=== PATIENT | male | born 1965 | race Caucasian/White ===

== ENCOUNTER → 2016-07-19 | Outpatient (CLI) | payer MEDICARE, MEDICAID | LOC: OD 12:22 | PROVIDERS: ATTEND Physician Assistant | DX: M54.41 Lumbago with sciatica, right side (principal) | CPT/HCPCS: 72110 ==

== ENCOUNTER → 2016-08-05 | Outpatient (CLI) | payer MEDICARE, MEDICAID | LOC: RAD 11:17 | PROVIDERS: ATTEND Physician Assistant | DX: M54.41 Lumbago with sciatica, right side (principal) | CPT/HCPCS: 72148 ==

== ENCOUNTER 2016-08-25 17:26 | Emergency (ER) | payer MEDICARE, MEDICAID ==
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
[2016-08-25] MEDS ORDERED: HYDROMORPHONE HCL INJ/PF 2 MG/ML AMPULE IM ONE (18:24)
[2016-08-25] MEDS ORDERED: ONDANSETRON 4 MG TAB.RAPDIS PO ONE (18:25)
[2016-08-25] MEDS ORDERED: PREDNISONE 20 MG TABLET PO ONE (18:46)
[2016-08-25 19:04] VITALS: BP 130/89
== END 2016-08-25 19:00 | disposition home or self-care (01) ==
LOC: ER 17:26
DX: M54.5 Low back pain (principal); G89.29 Other chronic pain; M54.10 Radiculopathy, site unspecified; M79.604 Pain in right leg; M79.671 Pain in right foot; F17.200 Nicotine dependence, unspecified, uncomplicated
CPT/HCPCS: 99283; 96372; A9270 ×2; J1170; J7512; S0119

== ENCOUNTER 2016-09-02 00:58 | Emergency (ER) | payer MEDICARE, MEDICAID | END 2016-09-02 05:30 | disposition left against medical advice (07) | LOC: ER 00:58 | DX: Z53.21 Procedure and treatment not carried out due to patient leaving prior to being seen by health care provider (principal) ==

== ENCOUNTER 2016-09-03 12:22 | Emergency (ER) | payer MEDICARE, MEDICAID ==
[2016-09-03] MEDS ORDERED: NORMAL SALINE 1000 ML 1,000 ML IV PRN (13:09)
[2016-09-03] MEDS ORDERED: ONDANSETRON HCL INJ/PF 4 MG/2 ML SDV IV ONE (13:10)
[2016-09-03] MEDS ORDERED: DEXAMETHASONE SOD PHOS INJ 10 MG/1 ML VIAL IV ONE (13:10)
[2016-09-03] MEDS ORDERED: HYDROMORPHONE HCL INJ/PF 2 MG/ML AMPULE IV ONE ×2 (13:10→16:06)
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
[2016-09-03 14:29] LABS: ABSOLUTE EOSINOPHILS # (AUTO) 0.1 10^3/uL (0.0-0.6); ABSOLUTE LYMPHOCYTES (AUTO) 0.7 10^3/uL (0.5-4.7); ABSOLUTE MONOCYTES (AUTO) 0.7 10^3/uL (0.1-1.4); ABSOLUTE NEUT (AUTO) 12.3 10^3/uL (1.7-8.2); BASOPHILS % (AUTO) 0.1 % (0-2); HEMATOCRIT 40.8 % (37.9-51.0); HEMOGLOBIN 13.7 g/dL (13.5-17.0); HGB HCT DIFFERENCE 0.3; LYMPHOCYTES % (AUTO) 5.2 % (13-45); MEAN CORPUSCULAR HEMOGLOBIN 29.4 pg (27.0-33.4); MEAN CORPUSCULAR HGB CONC 33.7 g/dL (32.0-36.0); MEAN CORPUSCULAR VOLUME 87 fl (80-97); RED BLOOD COUNT 4.68 10^6/uL (4.35-5.55); RED CELL DISTRIBUTION WIDTH 14.5 % (11.5-14.0); SEGMENTED NEUTROPHILS % (AUTO) 88.7 % (42-78); WHITE BLOOD COUNT 13.9 10^3/uL (4.0-10.5)
[2016-09-03 14:30] LABS: PROTHROMBIN TIME 12.5 SEC (11.4-15.4)
[2016-09-03 14:43] LABS: ALANINE AMINOTRANSFERASE 53 U/L (21-72); ALBUMIN 3.8 g/dL (3.5-5.0); ALKALINE PHOSPHATASE 58 U/L (38-126); ANION GAP 10 (5-19); ASPARTATE AMINO TRANSFERASE 60 U/L (17-59); BILIRUBIN,DIRECT 0.1 mg/dL (0.0-0.4); BILIRUBIN,TOTAL 0.5 mg/dL (0.2-1.3); BLOOD UREA NITROGEN 9 mg/dL (7-20); CALCIUM 8.8 mg/dL (8.4-10.2); CARBON DIOXIDE 22 mmol/L (22-30); CHLORIDE 108 mmol/L (98-107); CREATININE RESULT 0.89 mg/dL (0.52-1.25); GLUCOSE 77 mg/dL (75-110); POTASSIUM 3.9 mmol/L (3.6-5.0); SODIUM 140.3 mmol/L (137-145)
[2016-09-03 16:09] VITALS: BP 136/94
== END 2016-09-03 16:40 | disposition home or self-care (01) ==
LOC: ER 12:22
DX: M51.17 Intervertebral disc disorders with radiculopathy, lumbosacral region (principal); E11.9 Type 2 diabetes mellitus without complications; F17.210 Nicotine dependence, cigarettes, uncomplicated; R00.0 Tachycardia, unspecified; Z88.6 Allergy status to analgesic agent; Z88.0 Allergy status to penicillin; Z86.73 Personal history of transient ischemic attack (TIA), and cerebral infarction without residual deficits
CPT/HCPCS: 96376; 99283; 96374; 96375; 36415; 85025; 85610; 80053; 72100; J1170; J2405; J1100

== ENCOUNTER 2016-09-18 12:32 | Emergency (ER) | payer MEDICARE, MEDICAID ==
[2016-09-18] MEDS ORDERED: ONDANSETRON HCL 8 MG TABLET ONE (15:38)
[2016-09-18] MEDS ORDERED: OXYCODONE-ACETAMINOPHEN 5-325 MG TABLET ONE (15:38)
== END 2016-09-18 15:44 | disposition home or self-care (01) ==
LOC: ER 12:32
DX: G89.21 Chronic pain due to trauma (principal); M54.5 Low back pain; R11.0 Nausea
CPT/HCPCS: 99283

== ENCOUNTER 2016-09-27 11:54 | Emergency (ER) | payer MEDICARE, MEDICAID ==
[2016-09-27] MEDS ORDERED: ONDANSETRON 4 MG TAB.RAPDIS PO ONE (12:34)
[2016-09-27] MEDS ORDERED: KETOROLAC TROMETHAMINE 60 MG/2 ML SDV IM ONE (12:34)
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
[2016-09-27 13:13] VITALS: BP 143/88
== END 2016-09-27 13:13 | disposition home or self-care (01) ==
LOC: ER 11:54
DX: M54.9 Dorsalgia, unspecified (principal); G89.29 Other chronic pain; F17.210 Nicotine dependence, cigarettes, uncomplicated
CPT/HCPCS: 99283; 96372; J1885; A9270; S0119

== ENCOUNTER 2016-10-17 17:14 | Emergency (ER) | payer MEDICARE, MEDICAID ==
[2016-10-17 18:01] VITALS: BP 137/88
[2016-10-17] MEDS ORDERED: LIDOCAINE 5% (700 MG) TRANSDERMAL ADH..PATCH TP ONE (18:45)
[2016-10-17] MEDS ORDERED: DEXAMETHASONE SOD PHOS INJ 10 MG/1 ML VIAL IV ONE (18:45)
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
--- NOTE | 2016-10-17 22:29 | EKG REPORT ---
SEVERITY:- NORMAL ECG - SINUS RHYTHM : Confirmed by: Jamaica Portillo 17-Oct-2016 22:28:42
== END 2016-10-17 18:58 | disposition home or self-care (01) ==
LOC: ER 17:14
DX: G89.29 Other chronic pain (principal); M54.41 Lumbago with sciatica, right side; R55 Syncope and collapse; E11.9 Type 2 diabetes mellitus without complications; I25.2 Old myocardial infarction; I10 Essential (primary) hypertension; F17.200 Nicotine dependence, unspecified, uncomplicated; Z88.6 Allergy status to analgesic agent; Z88.0 Allergy status to penicillin
CPT/HCPCS: 93005; 93010; 99283

== ENCOUNTER 2016-12-13 12:43 | Observation (INO) | payer MEDICARE, MEDICAID ==
[2016-12-13 13:49] LABS: HEMATOCRIT 40.9 % (37.9-51.0); HEMOGLOBIN 14.1 g/dL (13.5-17.0); HGB HCT DIFFERENCE 1.4; MEAN CORPUSCULAR HEMOGLOBIN 30.3 pg (27.0-33.4); MEAN CORPUSCULAR HGB CONC 34.5 g/dL (32.0-36.0); MEAN CORPUSCULAR VOLUME 88 fl (80-97); RED BLOOD COUNT 4.66 10^6/uL (4.35-5.55); RED CELL DISTRIBUTION WIDTH 12.9 % (11.5-14.0); WHITE BLOOD COUNT 6.9 10^3/uL (4.0-10.5)
[2016-12-13 14:05] LABS: ALANINE AMINOTRANSFERASE 26 U/L (21-72); ALBUMIN 3.8 g/dL (3.5-5.0); ALKALINE PHOSPHATASE 61 U/L (38-126); ANION GAP 8 (5-19); ASPARTATE AMINO TRANSFERASE 18 U/L (17-59); BILIRUBIN,DIRECT 0.1 mg/dL (0.0-0.4); BILIRUBIN,TOTAL 0.7 mg/dL (0.2-1.3); BLOOD UREA NITROGEN 9 mg/dL (7-20); CALCIUM 8.9 mg/dL (8.4-10.2); CARBON DIOXIDE 24 mmol/L (22-30); CHLORIDE 109 mmol/L (98-107); CREATININE RESULT 0.96 mg/dL (0.52-1.25); GLUCOSE 94 mg/dL (75-110); POTASSIUM 3.7 mmol/L (3.6-5.0); TOTAL PROTEIN 6.4 g/dL (6.3-8.2)
[2016-12-13] MEDS ORDERED: PANTOPRAZOLE SODIUM 40 MG VIAL IV SCH (18:00)
[2016-12-13] MEDS: NORMAL SALINE 1000 ML 1,000 ML IV PRN (18:58)
[2016-12-13] MEDS: HYDROMORPHONE HCL INJ/PF 2 MG/ML AMPULE IV PRN ×2 (19:47→23:57)
[2016-12-13] MEDS ORDERED: LEVETIRACETAM 500 MG TABLET PO ONE (20:30)
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
--- NOTE | 2016-12-13 22:47 | EKG REPORT ---
SEVERITY:- NORMAL ECG - SINUS RHYTHM : Confirmed by: Jamaica Portillo 13-Dec-2016 22:46:36
[2016-12-14] MEDS: NORMAL SALINE 1000 ML 1,000 ML IV PRN (02:57)
[2016-12-14 03:47] LABS: APPEARANCE,URINE CLEAR; BILIRUBIN,URINE NEGATIVE (NEGATIVE); GLUCOSE, URINE NEGATIVE (NEGATIVE); KETONES,URINE NEGATIVE (NEGATIVE); LEUKOCYTE ESTERASE,URINE NEGATIVE (NEGATIVE); NITRITE,URINE NEGATIVE (NEGATIVE); PROTEIN,URINE NEGATIVE (NEGATIVE); URINE SPECIFIC GRAVITY 1.003; UROBILINOGEN,URINE NEGATIVE mg/dL (<2.0)
[2016-12-14] MEDS: HYDROMORPHONE HCL INJ/PF 2 MG/ML AMPULE IV PRN ×2 (03:51→08:17)
[2016-12-14 05:27] LABS: HEMATOCRIT 40.2 % (37.9-51.0); HEMOGLOBIN 13.9 g/dL (13.5-17.0); HGB HCT DIFFERENCE 1.5; MEAN CORPUSCULAR HEMOGLOBIN 30.9 pg (27.0-33.4); MEAN CORPUSCULAR HGB CONC 34.7 g/dL (32.0-36.0); MEAN CORPUSCULAR VOLUME 89 fl (80-97); RED BLOOD COUNT 4.51 10^6/uL (4.35-5.55); RED CELL DISTRIBUTION WIDTH 12.5 % (11.5-14.0); WHITE BLOOD COUNT 5.5 10^3/uL (4.0-10.5)
[2016-12-14] MEDS ORDERED: OXYCODONE-ACETAMINOPHEN 5-325 MG TABLET PO PRN (08:37)
[2016-12-14] MEDS ORDERED: HYDROMORPHONE HCL INJ/PF 2 MG/ML AMPULE IV PRN (08:45)
[2016-12-14] MEDS ORDERED: LEVETIRACETAM 500 MG TABLET PO SCH (10:00)
[2016-12-14] MEDS ORDERED: NALOXONE HCL INJ/PF 0.4 MG/1 ML SDV ONE (11:46)
[2016-12-14] MEDS ORDERED: GLUCAGON,HUMAN RECOMB 1 MG INJ ONE (11:47)
[2016-12-14] MEDS ORDERED: FLUMAZENIL INJ 0.5 MG/5 ML VIAL IV ONE (11:47)
[2016-12-14] MEDS ORDERED: EPINEPHRINE INJ 1 MG/10 ML DISP.SYRIN ONE (11:47)
[2016-12-14] MEDS: MIDAZOLAM 2 MG/2 ML INJ ONE ×4 (12:06→12:18)
[2016-12-14] MEDS: FENTANYL CITRATE INJ/PF 100 MCG/2 ML AMPUL ONE ×2 (12:08→12:14)
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
--- NOTE | 2016-12-14 12:33 | Operative Report ---
Operative Report DATE OF SURGERY: 12/14/16 Operative Report: Pre-op diagnosis: Melena Post-op diagnosis: 1. Antral gastritis and erosions 2. Duodenal ulcer and duodenitis Surgery: Esophagogastroduodenoscopy with biopsy Medications: Versed 3mg Fentanyl 100 mcg IV push Tissue removed: Antral biopsy for pathology Procedure: After informed consent obtained from patient, the throat was sprayed with Hurricane and conscious sedation was achieved. The upper endoscope was inserted into the esophagus under direct vision and advanced into the stomach. The duodenum was entered and examined to the second part. Endoscope was then slowly pulled out of the patient as the mucosa was examined into details. Patient tolerated procedure well. Findings Esophagus: Normal Z-line at: 45 cm Antrum: Moderate erythema with multiple small erosions Body: Normal Fundus: Normal Duodenum first part: Moderate erythema with a 3 mm ulcer. There was no evidence for recent bleeding Duodenum second part: Normal Plan: Await pathology. Continue PPI daily by mouth OPERATION: .
[2016-12-14 12:51] VITALS: BP 105/54
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
[2016-12-14] MEDS ORDERED: PANTOPRAZOLE SODIUM 40 MG VIAL IV SCH (18:00)
== END 2016-12-14 14:08 | disposition home or self-care (01) ==
LOC: 3S 12:43
PROVIDERS: ADMIT Internal Medicine; ATTEND Internal Medicine
PROC: 0DB68ZX Excision of Stomach, Via Natural or Artificial Opening Endoscopic, Diagnostic (ICD-10-PCS; principal; 2016-12-14 12:00)
DX: K92.2 Gastrointestinal hemorrhage, unspecified (principal); K29.50 Unspecified chronic gastritis without bleeding; K26.9 Duodenal ulcer, unspecified as acute or chronic, without hemorrhage or perforation; Z79.899 Other long term (current) drug therapy; K29.80 Duodenitis without bleeding; Z86.73 Personal history of transient ischemic attack (TIA), and cerebral infarction without residual deficits; I25.2 Old myocardial infarction; R56.9 Unspecified convulsions; S06.899S Other specified intracranial injury with loss of consciousness of unspecified duration, sequela; V49.9XXS Car occupant (driver) (passenger) injured in unspecified traffic accident, sequela; F17.210 Nicotine dependence, cigarettes, uncomplicated
CPT/HCPCS: 43239; 36415 ×2; 85027 ×2; 82272; 80076; 80048; 81001; 88342 ×2; 88305 ×2; 93005; 93010; G0378 ×2; J2250; J3010; A9270 ×3; J1170 ×2; C9113; J7030 ×2; G0379; J0171; J1610; J2310; J3490; S0164

== ENCOUNTER 2017-01-15 17:32 | Emergency (ER) | payer MEDICARE, MEDICAID ==
[2017-01-15] MEDS ORDERED: NORMAL SALINE 1000 ML 1,000 ML IV ONE (18:19)
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
--- NOTE | 2017-01-15 19:17 | RADIOLOGY REPORT (SQ) ---
EXAM DESCRIPTION: CHEST PA/LAT COMPLETED DATE/TIME: 01/15/2017 7:10 pm REASON FOR STUDY: CP COMPARISON: 08/12/2015 EXAM PARAMETERS: NUMBER OF VIEWS: two views TECHNIQUE: Digital Frontal and Lateral radiographic views of the chest acquired. RADIATION DOSE: NA LIMITATIONS: none FINDINGS: LUNGS AND PLEURA: No opacities, masses or pneumothorax. No pleural effusion. MEDIASTINUM AND HILAR STRUCTURES: No masses or contour abnormalities. HEART AND VASCULAR STRUCTURES: Heart normal size. No evidence for failure. BONES: No acute findings. HARDWARE: None in the chest. OTHER: No other significant finding. IMPRESSION: NO SIGNIFICANT RADIOGRAPHIC FINDING IN THE CHEST. TECHNICAL DOCUMENTATION: JOB ID: [id number] [employer]- All Rights Reserved
[2017-01-15 19:32] LABS: ABSOLUTE BASOPHILS # (AUTO) 0.1 10^3/uL (0.0-0.2); ABSOLUTE LYMPHOCYTES (AUTO) 1.9 10^3/uL (0.5-4.7); ABSOLUTE MONOCYTES (AUTO) 0.5 10^3/uL (0.1-1.4); ABSOLUTE NEUT (AUTO) 6.4 10^3/uL (1.7-8.2); BASOPHILS % (AUTO) 0.9 % (0-2); EOSINOPHILS % (AUTO) 0.5 % (0-6); HEMATOCRIT 46.1 % (37.9-51.0); HEMOGLOBIN 16.2 g/dL (13.5-17.0); HGB HCT DIFFERENCE 2.5; LYMPHOCYTES % (AUTO) 21.7 % (13-45); MEAN CORPUSCULAR HEMOGLOBIN 30.5 pg (27.0-33.4); MEAN CORPUSCULAR HGB CONC 35.1 g/dL (32.0-36.0); MEAN CORPUSCULAR VOLUME 87 fl (80-97); MONOCYTES % (AUTO) 5.2 % (3-13); RED BLOOD COUNT 5.31 10^6/uL (4.35-5.55); RED CELL DISTRIBUTION WIDTH 12.5 % (11.5-14.0); SEGMENTED NEUTROPHILS % (AUTO) 71.7 % (42-78)
[2017-01-15 19:52] LABS: ALANINE AMINOTRANSFERASE 23 U/L (21-72); ALKALINE PHOSPHATASE 72 U/L (38-126); ANION GAP 14 (5-19); ASPARTATE AMINO TRANSFERASE 25 U/L (17-59); BILIRUBIN,DIRECT 0.5 mg/dL (0.0-0.4); BILIRUBIN,TOTAL 1.2 mg/dL (0.2-1.3); BLOOD UREA NITROGEN 10 mg/dL (7-20); CALCIUM 9.8 mg/dL (8.4-10.2); CARBON DIOXIDE 23 mmol/L (22-30); CHLORIDE 107 mmol/L (98-107); CREATINE KINASE 310 U/L (55-170); CREATININE RESULT 0.96 mg/dL (0.52-1.25); GLUCOSE 85 mg/dL (75-110); POTASSIUM 3.8 mmol/L (3.6-5.0); SODIUM 143.7 mmol/L (137-145); TOTAL PROTEIN 7.9 g/dL (6.3-8.2)
[2017-01-15 20:04] LABS: CREATINE KINASE MB 1.47 ng/mL (<4.55)
[2017-01-15 20:06] LABS: TROPONIN I < 0.012 ng/mL
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
[2017-01-15 22:16] VITALS: BP 132/94
--- NOTE | 2017-01-15 22:53 | EKG REPORT ---
SEVERITY:- NORMAL ECG - SINUS RHYTHM : Confirmed by: [place] Portillo 15-Jan-2017 22:53:16
== END 2017-01-15 22:15 | disposition home or self-care (01) ==
LOC: ER 17:32
DX: R07.9 Chest pain, unspecified (principal); R42 Dizziness and giddiness; R06.00 Dyspnea, unspecified; F17.200 Nicotine dependence, unspecified, uncomplicated
CPT/HCPCS: 93005; 99285; 96360; 36415; 82553; 82550; 84443; 85025; 80053; 84484; 71020; 93010; J7030

== ENCOUNTER 2017-04-18 09:07 | Emergency (ER) | payer MEDICARE, MEDICAID ==
[2017-04-18] MEDS ORDERED: PREDNISONE 20 MG TABLET PO ONE (09:46)
[2017-04-18] MEDS ORDERED: IPRATROPIUM/ALBUTEROL 0.5-2.5 MG/3 ML AMPUL NEB ONE (09:46)
--- NOTE | 2017-04-18 09:56 | RADIOLOGY REPORT (SQ) ---
EXAM DESCRIPTION: CHEST PA/LAT COMPLETED DATE/TIME: 04/18/2017 9:33 am REASON FOR STUDY: cough COMPARISON: 01/15/2017. EXAM PARAMETERS: NUMBER OF VIEWS: two views TECHNIQUE: Digital Frontal and Lateral radiographic views of the chest acquired. RADIATION DOSE: NA LIMITATIONS: none FINDINGS: LUNGS AND PLEURA: No opacities, masses or pneumothorax. No pleural effusion. MEDIASTINUM AND HILAR STRUCTURES: No masses or contour abnormalities. HEART AND VASCULAR STRUCTURES: Heart normal size. No evidence for failure. BONES: No acute findings. HARDWARE: None in the chest. OTHER: No other significant finding. IMPRESSION: NO SIGNIFICANT RADIOGRAPHIC FINDING IN THE CHEST. TECHNICAL DOCUMENTATION: JOB ID: [id number] [employer]- All Rights Reserved
[2017-04-18] MEDS ORDERED: AZITHROMYCIN 250 MG TABLET PO ONE (10:45)
[2017-04-18] MEDS ORDERED: ALBUTEROL SULFATE HFA (90 MCG/PUFF) 8 GM MDI (1 MDI/ER DISP) IH ONE (10:45)
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
[2017-04-18 11:07] VITALS: BP 120/80
== END 2017-04-18 11:24 | disposition home or self-care (01) ==
LOC: ER 09:07
DX: J40 Bronchitis, not specified as acute or chronic (principal); R05 Cough; R19.7 Diarrhea, unspecified; R11.2 Nausea with vomiting, unspecified; F17.200 Nicotine dependence, unspecified, uncomplicated
CPT/HCPCS: 94640; 99283; 71020; A9270 ×3; J3490; J7512; J7620

== ENCOUNTER 2017-08-25 13:05 | Observation (INO) | payer MEDICARE, MEDICAID ==
[2017-08-25] MEDS ORDERED: ACETAMINOPHEN 325 MG TABLET ONE (14:44)
[2017-08-25] MEDS ORDERED: ACETAMINOPHEN 325 MG TABLET PO PRN ×2 (14:48→21:00)
[2017-08-25] MEDS ORDERED: LANSOPRAZOLE 30 MG TAB.RAP.DR PO ONE (15:00)
[2017-08-25 15:17] LABS: ALANINE AMINOTRANSFERASE 57 U/L (21-72); ALBUMIN 3.5 g/dL (3.5-5.0); ALKALINE PHOSPHATASE 51 U/L (38-126); ANION GAP 9 (5-19); ASPARTATE AMINO TRANSFERASE 33 U/L (17-59); BILIRUBIN,DIRECT 0.1 mg/dL (0.0-0.4); BILIRUBIN,TOTAL 0.1 mg/dL (0.2-1.3); BLOOD UREA NITROGEN 9 mg/dL (7-20); CALCIUM 9.1 mg/dL (8.4-10.2); CARBON DIOXIDE 27 mmol/L (22-30); CHLORIDE 107 mmol/L (98-107); GLUCOSE 110 mg/dL (75-110); POTASSIUM 3.9 mmol/L (3.6-5.0); SODIUM 142.6 mmol/L (137-145); TOTAL PROTEIN 5.8 g/dL (6.3-8.2)
[2017-08-25 15:31] LABS: ABSOLUTE EOSINOPHILS # (AUTO) 0.1 10^3/uL (0.0-0.6); ABSOLUTE MONOCYTES (AUTO) 0.5 10^3/uL (0.1-1.4); ABSOLUTE NEUT (AUTO) 4.8 10^3/uL (1.7-8.2); BASOPHILS % (AUTO) 0.7 % (0-2); HEMATOCRIT 40.2 % (37.9-51.0); HEMOGLOBIN 13.8 g/dL (13.5-17.0); LYMPHOCYTES % (AUTO) 15.7 % (13-45); MEAN CORPUSCULAR HEMOGLOBIN 30.1 pg (27.0-33.4); MEAN CORPUSCULAR HGB CONC 34.3 g/dL (32.0-36.0); MEAN CORPUSCULAR VOLUME 88 fl (80-97); MONOCYTES % (AUTO) 7.7 % (3-13); PLATELET COUNT 266 10^3/uL (150-450); RED BLOOD COUNT 4.58 10^6/uL (4.35-5.55); RED CELL DISTRIBUTION WIDTH 13.1 % (11.5-14.0); SEGMENTED NEUTROPHILS % (AUTO) 73.9 % (42-78); TOTAL CELLS COUNTED % (AUTO) 100 %; WHITE BLOOD COUNT 6.5 10^3/uL (4.0-10.5)
[2017-08-25 20:19] VITALS: BP 134/78
[2017-08-25] MEDS ORDERED: (PENDING PHARMACY ID) (Aripiprazole [Abilify 10 Mg Tablet] 10 MG) PO SCH (20:30)
--- NOTE | 2017-08-25 20:56 | PDOC H&P ---
History of Present Illness Admission Date/PCP: 08/25/17 13:05 BHANU LLANES MD History of Present Illness: BREANNA CHAPPELL JR is a 52 year old male.He came to the office today for evaluation of passage of black stool, he was seen in the office back in May of this year for the same complaint at that time he was referred to GI physician outpatient for evaluation but he did not keep the appointment, he was supposed to have colonoscopy done in January last year ,he did not keep the appointment either he said he was in [facility] at the time ,because of his attitude of poor compliance and the fact that he has a history of bleeding peptic ulcer disease was admitted directly from the office to the hospital for further evaluation of his complaints. The hemogram and the comprehensive metabolic panel all came back negative. Past Medical History Cardiac Medical History: Reports: Hypertension Neurological Medical History: Reports: Seizures - 9months ago takes keppra now GI Medical History: Reports: Peptic Ulcer Disease Musculoskeltal Medical History: Reports: Arthritis Traumatic Medical History: Reports: Traumatic Brain Injury Past Surgical History Past Surgical History: Reports: Orthopedic Surgery Social History Smoking Status: Current Every Day Smoker Frequency of Alcohol Use: None Drugs: None Hx Prescription Drug Abuse: No - Advance Directive Resuscitation Status: Full Code Family History Family History: Arthritis, CAD, DM, Hyperlipidemia, Hypertension, Thyroid Disfunction Parental Family History Reviewed: Yes Children Family History Reviewed: Yes Sibling(s) Family History Reviewed.: Yes Medication/Allergy Home Medications: Aripiprazole [Abilify 10 mg Tablet] 10 mg PO DAILY 08/25/17 Gabapentin [Neurontin 300 mg Capsule] 300 mg PO Q8 08/25/17 Levetiracetam [Keppra 500 mg Tablet] 500 mg PO Q12 08/25/17 Allergies/Adverse Reactions: aspirin Allergy (Verified 04/18/17 09:08) codeine Allergy (Verified 04/18/17 09:08) Penicillins Allergy (Verified 04/18/17 09:08) Review of Systems Constitutional: ABSENT: chills, fever(s), headache(s), weight gain, weight loss Eyes: ABSENT: visual disturbances Ears: ABSENT: hearing changes Cardiovascular: ABSENT: chest pain, dyspnea on exertion, edema, orthropnea, palpitations Respiratory: ABSENT: cough, hemoptysis Gastrointestinal: PRESENT: abdominal pain, melena. ABSENT: constipation, diarrhea, hematemesis, hematochezia, nausea, vomiting Genitourinary: ABSENT: dysuria, hematuria Musculoskeletal: ABSENT: joint swelling Integumentary: ABSENT: rash, wounds Neurological: ABSENT: abnormal gait, abnormal speech, confusion, dizziness, focal weakness, syncope Psychiatric: ABSENT: anxiety, depression, homidical ideation, suicidal ideation Endocrine: ABSENT: cold intolerance, heat intolerance, menstrual abnormalities, polydipsia, polyuria Hematologic/Lymphatic: ABSENT: easy bleeding, easy bruising, lymphadenopathy Physical Exam Vital Signs: Temp Pulse Resp BP Pulse Ox 98.1 F 68 16 134/78 H 96 08/25/17 20:17 08/25/17 20:17 08/25/17 20:17 08/25/17 20:17 08/25/17 20:17 Intake & Output 08/24/17 08/25/17 08/26/17 06:59 06:59 06:59 Weight 87.543 kg General appearance: PRESENT: no acute distress, well-developed, well-nourished Head exam: PRESENT: atraumatic, normocephalic Eye exam: PRESENT: conjunctiva pink, EOMI, PERRLA Ear exam: PRESENT: normal external ear exam Mouth exam: PRESENT: moist, tongue midline Neck exam: PRESENT: full ROM Respiratory exam: PRESENT: clear to auscultation jimmy Cardiovascular exam: PRESENT: RRR, +S1, +S2 Pulses: PRESENT: normal dorsalis pedis pul, +2 pedal pulses bilateral Vascular exam: PRESENT: normal capillary refill GI/Abdominal exam: PRESENT: normal bowel sounds, soft Rectal exam: PRESENT: deferred Neurological exam: PRESENT: alert, awake, oriented to person, oriented to place , oriented to time, oriented to situation, CN II-XII grossly intact Psychiatric exam: PRESENT: appropriate affect, normal mood Skin exam: PRESENT: dry, intact, warm. ABSENT: cyanosis, rash Results Laboratory Results: 08/25/17 14:23 08/25/17 14:23 08/25/17 08/25/17 14:23 14:23 WBC 6.5 RBC 4.58 Hgb 13.8 Hct 40.2 MCV 88 MCH 30.1 MCHC 34.3 RDW 13.1 Plt Count 266 Seg Neutrophils % 73.9 Lymphocytes % 15.7 Monocytes % 7.7 Eosinophils % 2.0 Basophils % 0.7 Absolute Neutrophils 4.8 Absolute Lymphocytes 1.0 Absolute Monocytes 0.5 Absolute Eosinophils 0.1 Absolute Basophils 0.0 Sodium 142.6 Potassium 3.9 Chloride 107 Carbon Dioxide 27 Anion Gap 9 BUN 9 Creatinine 0.87 Est GFR ( Amer) > 60 Est GFR (Non-Af Amer) > 60 Glucose 110 Calcium 9.1 Total Bilirubin 0.1 L AST 33 ALT 57 Alkaline Phosphatase 51 Total Protein 5.8 L Albumin 3.5 Assessment & Plan - Diagnosis (1) Melena Is this a current diagnosis for this admission?: Yes Plan: Patient was admitted to the hospital, the hemogram was normal, he was started on PPI, Prevacid, kept n.p.o. for upper endoscopy in the morning (2) Personal history of peptic ulcer disease Is this a current diagnosis for this admission?: Yes
--- NOTE | 2017-08-25 21:00 | PDOC DISCHARGE SUMMARY ---
General - Admit/Disc Date/PCP Admission Date/Primary Care Provider: 08/25/17 13:05 BHANU LLANES MD Discharge Date: 08/25/17 - Discharge Diagnosis (1) Melena Is this a current diagnosis for this admission?: Yes (2) Personal history of peptic ulcer disease Is this a current diagnosis for this admission?: Yes - Additional Information Resuscitation Status: Full Code Home Medications: Aripiprazole [Abilify 10 mg Tablet] 10 mg PO DAILY 08/25/17 Gabapentin [Neurontin 300 mg Capsule] 300 mg PO Q8 08/25/17 Levetiracetam [Keppra 500 mg Tablet] 500 mg PO Q12 08/25/17 History of Present Illness History of Present Illness: BREANNA CHAPPELL JR is a 52 year old male.He came to the office today for evaluation of passage of black stool, he was seen in the office back in May of this year for the same complaint at that time he was referred to GI physician outpatient for evaluation but he did not keep the appointment, he was supposed to have colonoscopy done in January last year ,he did not keep the appointment either he said he was in long-term at the time ,because of his attitude of poor compliance and the fact that he has a history of bleeding peptic ulcer disease was admitted directly from the office to the hospital for further evaluation of his complaints. The hemogram and the comprehensive metabolic panel all came back negative. Hospital Course Hospital Course: Patient was admitted for the management of passage of melena stool, consultation was obtained from GI for EGD was supposed to have endoscopy in the morning he was given a Prevacid and Tylenol for pain but patient left AMA because he said the Tylenol was not strong enough. He has a history of opioid abuse ,opioid is not indicated at this time there is no active GI bleed, it does not look like is in distress of any painful syndrome.I do not see any reason to give him opioid theray Physical Exam Vital Signs: Temp Pulse Resp BP Pulse Ox 98.1 F 68 16 134/78 H 96 08/25/17 20:17 08/25/17 20:17 08/25/17 20:17 08/25/17 20:17 08/25/17 20:17 Intake & Output 08/24/17 08/25/17 08/26/17 06:59 06:59 06:59 Weight 87.543 kg General appearance: PRESENT: no acute distress, well-developed, well-nourished Head exam: PRESENT: atraumatic, normocephalic Eye exam: PRESENT: conjunctiva pink, EOMI, PERRLA Ear exam: PRESENT: normal external ear exam Mouth exam: PRESENT: moist, tongue midline Neck exam: PRESENT: full ROM Respiratory exam: PRESENT: clear to auscultation jimmy Cardiovascular exam: PRESENT: RRR, +S1, +S2 Vascular exam: PRESENT: normal capillary refill GI/Abdominal exam: PRESENT: normal bowel sounds, soft Rectal exam: PRESENT: deferred Neurological exam: PRESENT: alert, awake, oriented to person, oriented to place , oriented to time, oriented to situation, CN II-XII grossly intact Psychiatric exam: PRESENT: appropriate affect, normal mood Skin exam: PRESENT: dry, intact, warm Results Laboratory Results: 08/25/17 14:23 08/25/17 14:23 08/25/17 08/25/17 14:23 14:23 WBC 6.5 RBC 4.58 Hgb 13.8 Hct 40.2 MCV 88 MCH 30.1 MCHC 34.3 RDW 13.1 Plt Count 266 Seg Neutrophils % 73.9 Lymphocytes % 15.7 Monocytes % 7.7 Eosinophils % 2.0 Basophils % 0.7 Absolute Neutrophils 4.8 Absolute Lymphocytes 1.0 Absolute Monocytes 0.5 Absolute Eosinophils 0.1 Absolute Basophils 0.0 Sodium 142.6 Potassium 3.9 Chloride 107 Carbon Dioxide 27 Anion Gap 9 BUN 9 Creatinine 0.87 Est GFR ( Amer) > 60 Est GFR (Non-Af Amer) > 60 Glucose 110 Calcium 9.1 Total Bilirubin 0.1 L AST 33 ALT 57 Alkaline Phosphatase 51 Total Protein 5.8 L Albumin 3.5 Qualifiers - * [facility] BEING DISCHARGED WITH ANY OF THE FOLLOWING DIAGNOSIS?: No
[2017-08-25] MEDS ORDERED: LEVETIRACETAM 500 MG TABLET PO SCH (22:00)
[2017-08-25] MEDS ORDERED: GABAPENTIN 300 MG CAPSULE PO SCH (22:00)
[2017-08-26] MEDS ORDERED: LANSOPRAZOLE 30 MG TAB.RAP.DR PO SCH (06:00)
[2017-08-26] MEDS ORDERED: ARIPIPRAZOLE 5 MG TABLET PO SCH (10:00)
== END 2017-08-25 20:52 | disposition left against medical advice (07) ==
LOC: 2S 13:05
PROVIDERS: ADMIT Internal Medicine; ATTEND Internal Medicine
DX: K92.1 Melena (principal); Z87.11 Personal history of peptic ulcer disease; Z91.19 Patient's noncompliance with other medical treatment and regimen; Z53.21 Procedure and treatment not carried out due to patient leaving prior to being seen by health care provider; R10.9 Unspecified abdominal pain; F11.11 Opioid abuse, in remission; R56.9 Unspecified convulsions; F17.200 Nicotine dependence, unspecified, uncomplicated; Z87.820 Personal history of traumatic brain injury; Z79.899 Other long term (current) drug therapy
CPT/HCPCS: 36415; 85025; 80076; 80048; G0378; G0379; A9270 ×2

== ENCOUNTER 2019-04-03 13:24 | Emergency (ER) | payer MEDICARE, OTHER ==
[2019-04-03] MEDS ORDERED: NORMAL SALINE 1000 ML 1,000 ML IV ONE (13:49)
[2019-04-03] MEDS ORDERED: MORPHINE SULFATE 10 MG/ML INJ IV ONE ×3 (13:49→18:31)
[2019-04-03] MEDS ORDERED: ONDANSETRON HCL INJ/PF 4 MG/2 ML SDV IV ONE ×2 (13:49→18:31)
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
[2019-04-03 15:02] LABS: APPEARANCE,URINE CLEAR; BILIRUBIN,URINE NEGATIVE (NEGATIVE); COLOR,URINE STRAW; GLUCOSE, URINE NEGATIVE (NEGATIVE); KETONES,URINE 20 mg/dL (NEGATIVE); PROTEIN,URINE NEGATIVE (NEGATIVE); UROBILINOGEN,URINE NEGATIVE mg/dL (<2.0)
[2019-04-03 15:03] LABS: ABSOLUTE LYMPHOCYTES (AUTO) 0.9 10^3/uL (0.5-4.7); ABSOLUTE MONOCYTES (AUTO) 0.4 10^3/uL (0.1-1.4); BASOPHILS % (AUTO) 0.4 % (0-2); EOSINOPHILS % (AUTO) 0.1 % (0-6); HEMATOCRIT 48.4 % (37.9-51.0); HEMOGLOBIN 16.6 g/dL (13.5-17.0); LYMPHOCYTES % (AUTO) 7.3 % (13-45); MEAN CORPUSCULAR HEMOGLOBIN 30.3 pg (27.0-33.4); MEAN CORPUSCULAR HGB CONC 34.2 g/dL (32.0-36.0); MEAN CORPUSCULAR VOLUME 89 fl (80-97); MONOCYTES % (AUTO) 3.1 % (3-13); PLATELET COUNT 268 10^3/uL (150-450); RED BLOOD COUNT 5.47 10^6/uL (4.35-5.55); RED CELL DISTRIBUTION WIDTH 12.9 % (11.5-14.0); SEGMENTED NEUTROPHILS % (AUTO) 89.1 % (42-78); TOTAL CELLS COUNTED % (AUTO) 100 %; WHITE BLOOD COUNT 12.4 10^3/uL (4.0-10.5)
[2019-04-03] MEDS ORDERED: METOCLOPRAMIDE HCL INJ/PF 10 MG/2 ML SDV IV ONE (15:25)
[2019-04-03 15:28] LABS: ALBUMIN 5.3 g/dL (3.5-5.0); ALKALINE PHOSPHATASE 81 U/L (38-126); ANION GAP 17 (5-19); ASPARTATE AMINO TRANSFERASE 70 U/L (17-59); BILIRUBIN,DIRECT 0.4 mg/dL (0.0-0.4); BILIRUBIN,TOTAL 1.6 mg/dL (0.2-1.3); BLOOD UREA NITROGEN 13 mg/dL (7-20); CALCIUM 10.3 mg/dL (8.4-10.2); CARBON DIOXIDE 18 mmol/L (22-30); CHLORIDE 109 mmol/L (98-107); GLUCOSE 71 mg/dL (75-110); POTASSIUM 3.8 mmol/L (3.6-5.0); TOTAL PROTEIN 8.4 g/dL (6.3-8.2)
[2019-04-03] MEDS ORDERED: DEXTROSE 5%-LACTATED RINGERS 1,000 ML IV ONE ×2 (15:46→17:08)
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
--- NOTE | 2019-04-03 20:03 | RADIOLOGY REPORT (SQ) ---
EXAM DESCRIPTION: CT ABD/PELVIS ORAL ONLY COMPLETED DATE/TIME: 04/03/2019 7:50 pm REASON FOR STUDY: Diffuse abdominal pain, leukocytosis, fever COMPARISON: None. TECHNIQUE: CT scan of the abdomen and pelvis performed with oral contrast and no intravenous contras t. Images reviewed with lung, soft tissue, and bone windows. Reconstructed coronal and sagittal MPR i mages reviewed. All images stored on PACS. All CT scanners at this facility use dose modulation, iterative reconstruction, and/or weight based d osing when appropriate to reduce radiation dose to as low as reasonably achievable (ALARA). [facility]: Dose Right [facility]: CareDose [facility]: Dose Right [facility]: Teradose 4D [facility]: [employer] RADIATION DOSE: mGy. LIMITATIONS: None. FINDINGS: LOWER CHEST: No significant findings. No nodules or infiltrates. NON-CONTRASTED LIVER, SPLEEN, ADRENALS: Evaluation limited by lack of IV contrast. No identified sign ificant masses. PANCREAS: No masses. No peripancreatic inflammatory changes. GALLBLADDER: No identified stones by CT criteria. No inflammatory changes to suggest cholecystitis. RIGHT KIDNEY AND URETER: No solid masses. Incidental note is made of a 2.8 cm simple cyst. No signi ficant calcification. No hydronephrosis or hydroureter. LEFT KIDNEY AND URETER: No solid masses. Incidental note is made of a 1.8 cm simple cyst. No signif icant calcification. No hydronephrosis or hydroureter. AORTA AND RETROPERITONEUM: No aneurysm. No retroperitoneal masses or adenopathy. BOWEL AND PERITONEAL CAVITY: No obvious masses or inflammatory changes. No free fluid. APPENDIX: Normal. PELVIS, BLADDER, AND ABDOMINAL WALL: No abnormal pelvic masses. No abdominal wall hernias. Bladder un remarkable. BONES: No significant findings. OTHER: No other significant finding. IMPRESSION: NO SIGNIFICANT OR ACUTE ABDOMINAL PROCESS. TECHNICAL DOCUMENTATION: JOB ID: [id number] Quality ID # [id number]: Final reports with documentation of one or more dose reduction techniques (e.g., Au tomated exposure control, adjustment of the mA and/or kV according to patient size, use of iterative reconstruction technique) 2010 [employer]- All Rights Reserved Reading location - IP/workstation name: [email or web address]
[2019-04-03 20:42] VITALS: BP 133/63
== END 2019-04-03 20:48 | disposition home or self-care (01) ==
LOC: ER 13:24
DX: R11.2 Nausea with vomiting, unspecified (principal); R19.7 Diarrhea, unspecified; R10.9 Unspecified abdominal pain; F17.210 Nicotine dependence, cigarettes, uncomplicated; Z88.6 Allergy status to analgesic agent; Z88.0 Allergy status to penicillin; I25.2 Old myocardial infarction
CPT/HCPCS: 96376; 99284; 96361; 96374; 96375; 36415; 83690; 85025; 80053; 81001; 74176; J2765; J2270; J2405; J7121; J7030

== ENCOUNTER 2019-04-05 04:45 | Observation (INO) | payer MEDICARE, BC ==
[2019-04-05] MEDS ORDERED: ONDANSETRON HCL INJ/PF 4 MG/2 ML SDV IV ONE (05:45)
[2019-04-05 05:56] LABS: ABSOLUTE BASOPHILS # (AUTO) 0.1 10^3/uL (0.0-0.2); ABSOLUTE LYMPHOCYTES (AUTO) 1.3 10^3/uL (0.5-4.7); ABSOLUTE MONOCYTES (AUTO) 0.8 10^3/uL (0.1-1.4); ABSOLUTE NEUT (AUTO) 8.7 10^3/uL (1.7-8.2); BASOPHILS % (AUTO) 1.2 % (0-2); EOSINOPHILS % (AUTO) 0.4 % (0-6); HEMATOCRIT 41.7 % (37.9-51.0); HEMOGLOBIN 14.8 g/dL (13.5-17.0); LYMPHOCYTES % (AUTO) 11.7 % (13-45); MEAN CORPUSCULAR HEMOGLOBIN 30.7 pg (27.0-33.4); MEAN CORPUSCULAR HGB CONC 35.4 g/dL (32.0-36.0); MEAN CORPUSCULAR VOLUME 87 fl (80-97); MONOCYTES % (AUTO) 7.3 % (3-13); PLATELET COUNT 299 10^3/uL (150-450); RED BLOOD COUNT 4.81 10^6/uL (4.35-5.55); RED CELL DISTRIBUTION WIDTH 12.7 % (11.5-14.0); SEGMENTED NEUTROPHILS % (AUTO) 79.4 % (42-78); TOTAL CELLS COUNTED % (AUTO) 100 %; WHITE BLOOD COUNT 10.9 10^3/uL (4.0-10.5)
[2019-04-05] MEDS ORDERED: NORMAL SALINE 1000 ML 1,000 ML IV ONE (06:09)
[2019-04-05 06:13] LABS: ALBUMIN 4.4 g/dL (3.5-5.0); ALKALINE PHOSPHATASE 57 U/L (38-126); ANION GAP 10 (5-19); ASPARTATE AMINO TRANSFERASE 62 U/L (17-59); BILIRUBIN,DIRECT 0.2 mg/dL (0.0-0.4); BILIRUBIN,TOTAL 1.5 mg/dL (0.2-1.3); BLOOD UREA NITROGEN 13 mg/dL (7-20); CARBON DIOXIDE 25 mmol/L (22-30); CHLORIDE 104 mmol/L (98-107); GLUCOSE 102 mg/dL (75-110); POTASSIUM 3.3 mmol/L (3.6-5.0)
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
[2019-04-05] MEDS: MORPHINE SULFATE 10 MG/ML INJ IV PRN ×3 (06:23→23:35)
[2019-04-05 06:34] LABS: APPEARANCE,URINE CLEAR; BILIRUBIN,URINE NEGATIVE (NEGATIVE); COLOR,URINE YELLOW; GLUCOSE, URINE NEGATIVE (NEGATIVE); KETONES,URINE TRACE mg/dL (NEGATIVE); LEUKOCYTE ESTERASE,URINE NEGATIVE (NEGATIVE); NITRITE,URINE NEGATIVE (NEGATIVE); PROTEIN,URINE NEGATIVE (NEGATIVE)
[2019-04-05 06:41] LABS: URINE AMPHETAMINES SCREEN NEGATIVE; URINE BARBITURATES SCREEN NEGATIVE; URINE BENZODIAZEPINES SCREEN UNCONFIRMED POSITIVE; URINE COCAINE SCREEN NEGATIVE; URINE MARIJUANA (THC) SCREEN UNCONFIRMED POSITIVE; URINE METHADONE SCREEN NEGATIVE; URINE PHENCYCLIDINE SCREEN NEGATIVE
[2019-04-05] MEDS ORDERED: MORPHINE SULFATE 10 MG/ML INJ IV PRN ×2 (07:19→16:24)
[2019-04-05] MEDS ORDERED: PROCHLORPERAZINE EDISYLATE INJ 10 MG/2 ML VIAL IV ONE (07:20)
[2019-04-05] MEDS ORDERED: POTASSI CL 20 MEQ/50 ML RIDER 20 MEQ/50 ML RTUPB IV ONE ×2 (07:21→16:09)
--- NOTE | 2019-04-05 09:27 | RADIOLOGY REPORT (SQ) ---
EXAM DESCRIPTION: CT ABD/PELVIS ORAL ONLY COMPLETED DATE/TIME: 04/05/2019 9:07 am REASON FOR STUDY: RLQ pain abd COMPARISON: CT abdomen pelvis 04/03/2019 TECHNIQUE: CT scan of the abdomen and pelvis performed without intravenous contrast. Patient drank oral contrast. Images reviewed with lung, soft tissue, and bone windows. Reconstructed coronal and s agittal MPR images reviewed. All images stored on PACS. All CT scanners at this facility use dose modulation, iterative reconstruction, and/or weight based d osing when appropriate to reduce radiation dose to as low as reasonably achievable (ALARA). [facility]: Dose Right [facility]: CareDose [facility]: Dose Right [facility]: Teradose 4D [facility]: [employer] RADIATION DOSE: CT Rad equipment meets quality standard of care and radiation dose reduction techniq ues were employed. CTDIvol: 8.2 mGy. DLP: 498 mGy-cm.mGy. LIMITATIONS: None. FINDINGS: Patient drank oral contrast. No CT evidence of bowel obstruction. No free intraperitonea l air or fluid. Normal appendix on coronal images 29-35. LOWER CHEST: No significant findings. No nodules or infiltrates. NON-CONTRASTED LIVER, SPLEEN, ADRENALS: Evaluation limited by lack of IV contrast. No identified sign ificant masses. PANCREAS: No masses. No peripancreatic inflammatory changes. GALLBLADDER: No identified stones by CT criteria. No inflammatory changes to suggest cholecystitis. RIGHT KIDNEY AND URETER: No suspicious masses. Assessment limited by lack of IV contrast. 3 cm right midpole renal cortical cyst. No significant calcifications. No hydronephrosis or hydroureter. LEFT KIDNEY AND URETER: No suspicious masses. Assessment limited by lack of IV contrast. No signifi cant calcifications. No hydronephrosis or hydroureter. AORTA AND RETROPERITONEUM: No aneurysm. No retroperitoneal masses or adenopathy. BOWEL AND PERITONEAL CAVITY: No obvious masses or inflammatory changes. No free fluid. APPENDIX: Normal. PELVIS, BLADDER, AND ABDOMINAL WALL:No abnormal masses. No free fluid. Bladder normal. BONES: No significant findings. OTHER: No other significant finding. IMPRESSION: NO SIGNIFICANT OR ACUTE PROCESS IN THE ABDOMEN OR PELVIS. COMMENT: Quality ID # [id number]: Final reports with documentation of one or more dose reduction techniques (e.g., Automated exposure control, adjustment of the mA and/or kV according to patient size, use of iterative reconstruction technique) TECHNICAL DOCUMENTATION: JOB ID: [id number] [address] [employer]- All Rights Reserved Reading location - IP/workstation name: [email or web address]
[2019-04-05] MEDS ORDERED: RINGERS SOLUTION,LACTATED 1,000 ML IV PRN (11:07)
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
[2019-04-05] MEDS ORDERED: CLINDAMYCIN 600 MG/D5W RTU 600 MG/50 ML RTUPB IV SCH (11:30)
[2019-04-05] MEDS ORDERED: ONDANSETRON HCL INJ/PF 4 MG/2 ML SDV IV PRN ×3 (12:12→16:24)
[2019-04-05] MEDS ORDERED: PROMETHAZINE HCL INJ 25 MG/1 ML VIAL IV PRN ×4 (12:13→16:24)
[2019-04-05] MEDS ORDERED: LORAZEPAM INJ 2 MG/1 ML VIAL IV PRN (12:13)
[2019-04-05] MEDS ORDERED: HYDRALAZINE HCL INJ/PF 20 MG/1 ML SDV IV PRN (12:14)
[2019-04-05] MEDS: POTASSI CL 20 MEQ/50 ML RIDER 20 MEQ/50 ML RTUPB IV SCH ×3 (12:38→14:59)
[2019-04-05] MEDS: CLINDAMYCIN 600 MG/D5W RTU 600 MG/50 ML RTUPB IV SCH ×2 (12:39→19:35)
[2019-04-05] MEDS ORDERED: CLINDAMYCIN 600 MG/D5W RTU 50 ML IV SCH (14:00)
[2019-04-05] MEDS ORDERED: MIDAZOLAM 2 MG/2 ML INJ ONE (14:27)
[2019-04-05] MEDS ORDERED: DEXAMETHASONE SOD PHOSPHATE INJ 4 MG/1 ML VIAL ONE (14:27)
[2019-04-05] MEDS ORDERED: ONDANSETRON HCL INJ/PF 4 MG/2 ML SDV ONE (14:27)
[2019-04-05] MEDS ORDERED: FENTANYL CITRATE INJ/PF 100 MCG/2 ML AMPUL ONE ×2 (14:27→17:11)
[2019-04-05] MEDS ORDERED: PROPOFOL INJ 200 MG/20 ML VIAL IV ONE (14:28)
[2019-04-05] MEDS ORDERED: SUGAMMADEX SODIUM 200 MG/2 ML SDV IV ONE (14:45)
[2019-04-05] MEDS ORDERED: BUPIVACAINE HCL 0.25 % INJ/PF (2.5 MG/1 ML) 30 ML VIAL ONE (14:52)
--- NOTE | 2019-04-05 15:09 | EKG REPORT ---
SEVERITY:- NORMAL ECG - SINUS RHYTHM : Confirmed by: Marry Gomez MD 05-Apr-2019 15:07:21
[2019-04-05] MEDS ORDERED: (PENDING PHARMACY ID) (Oxycodone Hcl/Acetaminophen [Percocet 10-325 Mg Tablet] 1 EACH) PO PRN (16:04)
[2019-04-05] MEDS ORDERED: CYCLOBENZAPRINE HCL 10 MG TABLET PO PRN (16:15)
[2019-04-05] MEDS ORDERED: DIPHENHYDRAMINE HCL 50 MG/ML VIAL IV PRN (16:24)
[2019-04-05] MEDS ORDERED: FENTANYL CITRATE INJ/PF 100 MCG/2 ML AMPUL IV PRN ×2 (16:24)
[2019-04-05] MEDS ORDERED: MEPERIDINE HCL/PF INJ 25 MG/1 ML DISP.SYRIN IV PRN (16:24)
--- NOTE | 2019-04-05 16:48 | Operative Report ---
Operative Report DATE OF SURGERY: 04/05/19 PREOPERATIVE DIAGNOSIS: Acute right lower quadrant pain, rule out appendicitis POSTOPERATIVE DIAGNOSIS: Same; possible early appendicitis OPERATION: 1. Laparoscopic appendectomy SURGEON: NURIA PHELAN ANESTHESIA: GA TISSUE REMOVED OR ALTERED: 1 appendix COMPLICATIONS: None ESTIMATED BLOOD LOSS: Scant INTRAOPERATIVE FINDINGS: See below PROCEDURE: The patient was taken to the preop holding area to the main operating room where general anesthesia was induced. Patient voided on-call to the OR. The arms were tucked, the abdominal wall shaved, prepped and draped in sterile fashion. Surgical plan and surgical timeout were conducted. Markings were made on the skin for 3 port laparoscopy. The skin at all 3 sites was anesthetized with 1% plain lidocaine. A small vertical incision was made above the umbilicus, and a Veress needle was inserted into the peritoneal cavity, pneumoperitoneum was established. Veress needle was removed, and a 5 mm port was inserted and a 5 mm flexible scope was inserted. There was no evidence of vascular or visceral injury. Under direct visualization 2 additional ports were placed one 5 mm in the suprapubic position and a 12 mm left lower quadrant position. Again all entry sites were inspected for bleeding and there was none. The patient was placed in Trendelenburg position the appendix appreciated. It appeared to be only minimally enlarged. There was no evidence of perforation, fluid, sepsis. Furthermore there was no evidence of bowel obstruction, abnormal bowel color, or cecal irregularity. There was no evidence of hernia in the right lower quadrant, specifically no evidence of right inguinal hernia. The surface of the rectum appeared unremarkable. The gallbladder appeared slightly dilated but not acutely inflamed. We proceeded with appendectomy. The peritoneal reflection was divided releasing the tip of the appendix into the free peritoneal space. We had the appendix elevated from its base and mesoappendix. Photos were taken. We brought onto the field a 35 mm Endo MIKE stapler, blue load. It was advanced, and clamped onto the mesoappendix and appendix and one bite. Stapler was activated, effectively dividing both the mesoappendix and the base of the appendix safely. The appendix was removed from the patient to the left lower quadrant port site. There was minimal staple line bleeding which was managed with a small piece of Surgicel. We level the patient out, check for any other issues and there were none. We felt the operation was complete. Sponge and needle counts are correct. All ports removed under direct visualization, pneumoperitoneum sacculated, and supraumbilical left lower quadrant fascial defects closed with 0 Vicryl and skin closed with 3-0 Vicryl. Benzoin Steri-Strips applied. Patient tolerated procedure well, extubated, taken recovery in stable condition. The appendix was opened on the back table and found to contain stool. It was sent for permanent analysis.
[2019-04-05] MEDS: FENTANYL CITRATE INJ/PF 100 MCG/2 ML AMPUL IV PRN ×2 (17:09→17:22)
[2019-04-05] MEDS: OXYCODONE-ACETAMINOPHEN 5-325 MG TABLET PO PRN (19:34)
[2019-04-05] MEDS: GABAPENTIN 300 MG CAPSULE PO SCH (19:35)
[2019-04-05] MEDS: LISINOPRIL 10 MG TABLET PO SCH (19:36)
[2019-04-05] MEDS: DOCUSATE SODIUM 100 MG CAPSULE PO SCH (19:36)
[2019-04-05] MEDS: OXYCODONE HCL IR 5 MG TABLET PO PRN (20:11)
[2019-04-05] MEDS ORDERED: INFLUENZA QUAD (6MOS+) 2019-20 VAC 0.5 ML SYR IM ONE (20:17)
[2019-04-06] MEDS: MORPHINE SULFATE 10 MG/ML INJ IV PRN ×3 (01:37→09:10)
[2019-04-06] MEDS: CLINDAMYCIN 600 MG/D5W RTU 600 MG/50 ML RTUPB IV SCH (01:38)
[2019-04-06] MEDS: OXYCODONE HCL IR 5 MG TABLET PO PRN ×2 (02:18→08:02)
[2019-04-06] MEDS: OXYCODONE-ACETAMINOPHEN 5-325 MG TABLET PO PRN ×2 (02:24→08:01)
[2019-04-06] MEDS: GABAPENTIN 300 MG CAPSULE PO SCH (06:05)
--- NOTE | 2019-04-06 08:56 | PDOC PROGRESS REPORT ---
Subjective Progress Note for:: 04/06/19 Subjective:: Feels well. Much better than before the operation. Reason For Visit: ACUTE ABDOMINAL PAIN Physical Exam Vital Signs: Temp Pulse Resp BP Pulse Ox 98.2 F 79 16 129/74 H 94 04/06/19 01:09 04/06/19 01:09 04/06/19 01:09 04/06/19 01:09 04/06/19 01:09 Intake & Output 04/05/19 04/06/19 04/07/19 06:59 06:59 06:59 Intake Total 3831 Output Total 1407 Balance 2424 Weight 91.2 kg General appearance: PRESENT: no acute distress, cooperative Respiratory exam: PRESENT: clear to auscultation jimmy Cardiovascular exam: PRESENT: RRR GI/Abdominal exam: PRESENT: other - Soft, nondistended, wounds clean dry and intact. Minimal tenderness. Extremities exam: PRESENT: other - No swelling and no tenderness. Results Laboratory Results: 04/05/19 05:35 04/05/19 18:21 04/05/19 04/05/19 15:30 18:21 Potassium 3.2 L 3.4 L Impressions: Abdomen/Pelvis CT 04/05/19 06:10 IMPRESSION: NO SIGNIFICANT OR ACUTE PROCESS IN THE ABDOMEN OR PELVIS. Assessment & Plan - Diagnosis (1) Abdominal pain Qualifiers: Abdominal location: right lower quadrant Qualified Code(s): R10.31 - Right lower quadrant pain Is this a current diagnosis for this admission?: Yes Plan: Doing well after laparoscopic appendectomy. Surgeon uncertain whether he had appendicitis. But patient has had good response. Will discharge patient home. - Time Time Spent with patient: Less than 15 minutes
--- NOTE | 2019-04-06 09:00 | PDOC DISCHARGE SUMMARY ---
General - Admit/Disc Date/PCP Admission Date/Primary Care Provider: 04/05/19 12:04 Discharge Date: 04/06/19 - Discharge Diagnosis Final Diagnosis: Right lower quadrant abdominal pain - Assessment Summary: Patient underwent laparoscopic appendectomy. It was uncertain whether he had appendicitis however he had good response with surgery and was feeling much better. Patient was tolerating a diet with minimal tenderness at the time of discharge. He has not been discharged home in good condition. He will follow- up with Dr. Pemberton in 2 weeks. He is encouraged to stay active but avoid strenuous activity. He may shower tomorrow. He may follow a regular diet. - Additional Information Resuscitation Status: Full Code Discharge Diet: As Tolerated Discharge Activity: Activity As Tolerated - Stay active but avoid strenuous activity. Referrals: NURIA PEMBERTON MD [ACTIVE STAFF] - Home Medications: Cyclobenzaprine HCl [Flexeril 5 mg Tablet] 5 mg PO TIDP PRN 04/05/19 Ergocalciferol (Vitamin D2) [Vitamin D2] 50,000 unit PO WE@1000 04/05/19 Gabapentin [Neurontin 300 mg Capsule] 300 mg PO BID 04/05/19 Lisinopril/Hydrochlorothiazide [Lisinopril-Hctz 20-12.5 mg Tab] 1 each PO DAILY 04/05/19 Oxycodone HCl/Acetaminophen [Percocet 10-325 mg Tablet] 1 each PO Q6HP PRN 04/05/19 History of Present Illiness History of Present Illness: BREANNA CHAPPELL JR is a 54 year old male Physical Exam Vital Signs: Temp Pulse Resp BP Pulse Ox 98.2 F 79 16 129/74 H 94 04/06/19 01:09 04/06/19 01:09 04/06/19 01:09 04/06/19 01:09 04/06/19 01:09 Intake & Output 04/05/19 04/06/19 04/07/19 06:59 06:59 06:59 Intake Total 3831 Output Total 1407 Balance 2424 Weight 91.2 kg Results Laboratory Results: WBC 10.9 10^3/uL (4.0-10.5) H 04/05/19 05:35 RBC 4.81 10^6/uL (4.35-5.55) 04/05/19 05:35 Hgb 14.8 g/dL (13.5-17.0) 04/05/19 05:35 Hct 41.7 % (37.9-51.0) 04/05/19 05:35 MCV 87 fl (80-97) 04/05/19 05:35 MCH 30.7 pg (27.0-33.4) 04/05/19 05:35 MCHC 35.4 g/dL (32.0-36.0) 04/05/19 05:35 RDW 12.7 % (11.5-14.0) 04/05/19 05:35 Plt Count 299 10^3/uL (150-450) 04/05/19 05:35 Lymph % (Auto) 11.7 % (13-45) L 04/05/19 05:35 [place] % (Auto) 7.3 % (3-13) 04/05/19 05:35 Eos % (Auto) 0.4 % (0-6) 04/05/19 05:35 Baso % (Auto) 1.2 % (0-2) 04/05/19 05:35 Absolute Neuts (auto) 8.7 10^3/uL (1.7-8.2) H 04/05/19 05:35 Absolute Lymphs (auto) 1.3 10^3/uL (0.5-4.7) 04/05/19 05:35 Absolute Monos (auto) 0.8 10^3/uL (0.1-1.4) 04/05/19 05:35 Absolute Eos (auto) 0.0 10^3/uL (0.0-0.6) 04/05/19 05:35 Absolute Basos (auto) 0.1 10^3/uL (0.0-0.2) 04/05/19 05:35 Seg Neutrophils % 79.4 % (42-78) H 04/05/19 05:35 Sodium 139.2 mmol/L (137-145) 04/05/19 05:35 Potassium 3.4 mmol/L (3.6-5.0) L 04/05/19 18:21 Chloride 104 mmol/L (98-107) 04/05/19 05:35 Carbon Dioxide 25 mmol/L (22-30) 04/05/19 05:35 Anion Gap 10 (5-19) 04/05/19 05:35 BUN 13 mg/dL (7-20) 04/05/19 05:35 Creatinine 1.04 mg/dL (0.52-1.25) 04/05/19 05:35 Est GFR ( Amer) > 60 (>60) 04/05/19 05:35 Est GFR (MDRD) Non-Af > 60 (>60) 04/05/19 05:35 Glucose 102 mg/dL (75-110) 04/05/19 05:35 Lactic Acid 1.3 mmol/L (0.7-2.1) 04/05/19 06:20 Calcium 9.0 mg/dL (8.4-10.2) 04/05/19 05:35 Magnesium 2.1 mg/dL (1.6-2.3) 04/05/19 05:35 Total Bilirubin 1.5 mg/dL (0.2-1.3) H 04/05/19 05:35 Direct Bilirubin 0.2 mg/dL (0.0-0.4) 04/05/19 05:35 Neonat Total Bilirubin Not Reportable 04/05/19 05:35 Neonat Direct Bilirubin Not Reportable 04/05/19 05:35 Neonat Indirect Bili Not Reportable 04/05/19 05:35 AST 62 U/L (17-59) H 04/05/19 05:35 ALT 40 U/L (<50) 04/05/19 05:35 Alkaline Phosphatase 57 U/L (38-126) 04/05/19 05:35 Total Protein 7.0 g/dL (6.3-8.2) 04/05/19 05:35 Albumin 4.4 g/dL (3.5-5.0) 04/05/19 05:35 Lipase 251.4 U/L (23-300) 04/05/19 05:35 Urine Color YELLOW 04/05/19 05:50 Urine Appearance CLEAR 04/05/19 05:50 Urine pH 7.0 (5.0-9.0) 04/05/19 05:50 Ur Specific [place] 1.010 04/05/19 05:50 Urine Protein NEGATIVE mg/dL (NEGATIVE) 04/05/19 05:50 Urine Glucose (UA) NEGATIVE mg/dL (NEGATIVE) 04/05/19 05:50 Urine Ketones TRACE mg/dL (NEGATIVE) H 04/05/19 05:50 Urine Blood LARGE (NEGATIVE) H 04/05/19 05:50 Urine Nitrite NEGATIVE (NEGATIVE) 04/05/19 05:50 Urine Bilirubin NEGATIVE (NEGATIVE) 04/05/19 05:50 Urine Urobilinogen 2.0 mg/dL (<2.0) H 04/05/19 05:50 Ur Leukocyte Esterase NEGATIVE (NEGATIVE) 04/05/19 05:50 Urine WBC (Auto) 1 /HPF 04/05/19 05:50 Urine RBC (Auto) 34 /HPF 04/05/19 05:50 Urine Mucus (Auto) RARE /LPF 04/05/19 05:50 Urine Ascorbic Acid NEGATIVE (NEGATIVE) 04/05/19 05:50 Urine Opiates Screen UNCONFIRMED POSITIVE 04/05/19 05:50 Urine Methadone Screen NEGATIVE 04/05/19 05:50 Ur Barbiturates Screen NEGATIVE 04/05/19 05:50 Ur Phencyclidine Scrn NEGATIVE 04/05/19 05:50 Ur Amphetamines Screen NEGATIVE 04/05/19 05:50 U Benzodiazepines Scrn UNCONFIRMED POSITIVE 04/05/19 05:50 Urine Cocaine Screen NEGATIVE 04/05/19 05:50 U Marijuana (THC) Screen UNCONFIRMED POSITIVE 04/05/19 05:50 Impressions: Abdomen/Pelvis CT 04/05/19 06:10 IMPRESSION: NO SIGNIFICANT OR ACUTE PROCESS IN THE ABDOMEN OR PELVIS.
[2019-04-06] MEDS: DOCUSATE SODIUM 100 MG CAPSULE PO SCH (09:09)
[2019-04-06] MEDS: LISINOPRIL 10 MG TABLET PO SCH (09:09)
[2019-04-06] MEDS ORDERED: OXYCODONE HCL IR 5 MG TABLET PO PRN (12:07)
[2019-04-06] MEDS ORDERED: OXYCODONE-ACETAMINOPHEN 5-325 MG TABLET PO PRN (12:07)
[2019-04-06 12:42] VITALS: BP 130/78
--- NOTE | 2019-04-06 16:53 | PDOC PROGRESS REPORT ---
Subjective Progress Note for:: 04/06/19 Subjective:: Patient states that he feels well. Feels a lot better than he did yesterday. Still having some abdominal pain. Reason For Visit: ACUTE ABDOMINAL PAIN Physical Exam Vital Signs: Temp Pulse Resp BP Pulse Ox 98.2 F 79 16 130/80 H 94 04/06/19 09:47 04/06/19 09:47 04/06/19 09:47 04/06/19 09:47 04/06/19 09:47 Intake & Output 04/05/19 04/06/19 04/07/19 06:59 06:59 06:59 Intake Total 4831 Output Total 1407 Balance 3424 Weight 91.2 kg General appearance: PRESENT: no acute distress, cooperative Neck exam: ABSENT: JVD Respiratory exam: PRESENT: clear to auscultation jimmy Cardiovascular exam: PRESENT: +S1, +S2 GI/Abdominal exam: PRESENT: normal bowel sounds, soft, tenderness Neurological exam: PRESENT: alert, awake Results Laboratory Results: 04/05/19 05:35 04/05/19 18:21 04/05/19 18:21 Potassium 3.4 L Impressions: Abdomen/Pelvis CT 04/05/19 06:10 IMPRESSION: NO SIGNIFICANT OR ACUTE PROCESS IN THE ABDOMEN OR PELVIS. Assessment and Plan - Diagnosis (1) Abdominal pain Qualifiers: Abdominal location: right lower quadrant Qualified Code(s): R10.31 - Right lower quadrant pain Is this a current diagnosis for this admission?: Yes Plan: s/p appendectomy. Will need pain control. Rest of management per surgical team. (2) Hypertension Is this a current diagnosis for this admission?: Yes Plan: continue home meds (3) Hypokalemia Is this a current diagnosis for this admission?: Yes Plan: No follow-up BMP today but patient should continue taking his home potassium medication (4) Opiate dependence, continuous Is this a current diagnosis for this admission?: Yes Plan: Restart home meds (5) Seizure Is this a current diagnosis for this admission?: Yes Plan: As per patient he has been seizure-free and he has been taken off of his anti- seizures. Seizure precaution - Plan Summary Summary: . - Time Time Spent with patient: Less than 15 minutes
[2019-04-07] MEDS ORDERED: ERGOCALCIFEROL (VITAMIN D2) 50000 UNIT (1.25 MG) CAPSULE PO SCH (10:00)
== END 2019-04-06 15:05 | disposition home or self-care (01) ==
LOC: ER 04:45 → EH 12:04 → 5 13:25
PROVIDERS: ADMIT Surgery; ATTEND Surgery
DX: R10.31 Right lower quadrant pain (principal); R11.2 Nausea with vomiting, unspecified; G89.29 Other chronic pain; M54.9 Dorsalgia, unspecified; F11.20 Opioid dependence, uncomplicated; F17.200 Nicotine dependence, unspecified, uncomplicated; I10 Essential (primary) hypertension; E87.6 Hypokalemia; D72.829 Elevated white blood cell count, unspecified; R53.1 Weakness; R19.7 Diarrhea, unspecified; R56.9 Unspecified convulsions; R20.0 Anesthesia of skin; I25.10 Atherosclerotic heart disease of native coronary artery without angina pectoris; Z91.041 Radiographic dye allergy status; Z79.899 Other long term (current) drug therapy; Z23 Encounter for immunization; Z87.820 Personal history of traumatic brain injury; Z87.11 Personal history of peptic ulcer disease; Z87.81 Personal history of (healed) traumatic fracture; Z88.6 Allergy status to analgesic agent; Z88.0 Allergy status to penicillin; Z87.892 Personal history of anaphylaxis
CPT/HCPCS: 99285; 96361; 96375; 96365; 96366; 96368; 36415; 87040; 83605; 83690; 83735; 84132; 85025; 80053; 81001; 80307; 88304 ×2; 74176; 90686; 93005; 93010; 00840; 44970; G0378 ×3; J2250; J1100; A9270 ×9; J3010; J2270 ×2; J0780; J2405; J3480; J7030; J7120; J2704; J3490; 840

== ENCOUNTER 2019-04-07 08:52 | Emergency (ER) | payer MEDICARE, BC ==
[2019-04-07] MEDS ORDERED: MORPHINE SULFATE 10 MG/ML INJ IV ONE (12:22)
[2019-04-07] MEDS ORDERED: METOCLOPRAMIDE HCL INJ/PF 10 MG/2 ML SDV IV ONE ×2 (12:22→16:05)
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
[2019-04-07 12:30] LABS: ABSOLUTE EOSINOPHILS # (AUTO) 0.1 10^3/uL (0.0-0.6); ABSOLUTE LYMPHOCYTES (AUTO) 0.9 10^3/uL (0.5-4.7); ABSOLUTE MONOCYTES (AUTO) 0.7 10^3/uL (0.1-1.4); BASOPHILS % (AUTO) 0.3 % (0-2); EOSINOPHILS % (AUTO) 0.4 % (0-6); HEMATOCRIT 38.5 % (37.9-51.0); HEMOGLOBIN 13.3 g/dL (13.5-17.0); LYMPHOCYTES % (AUTO) 7.1 % (13-45); MEAN CORPUSCULAR HEMOGLOBIN 30.1 pg (27.0-33.4); MEAN CORPUSCULAR HGB CONC 34.5 g/dL (32.0-36.0); MEAN CORPUSCULAR VOLUME 87 fl (80-97); MONOCYTES % (AUTO) 5.7 % (3-13); PLATELET COUNT 265 10^3/uL (150-450); RED BLOOD COUNT 4.41 10^6/uL (4.35-5.55); RED CELL DISTRIBUTION WIDTH 12.7 % (11.5-14.0); SEGMENTED NEUTROPHILS % (AUTO) 86.5 % (42-78); TOTAL CELLS COUNTED % (AUTO) 100 %; WHITE BLOOD COUNT 12.7 10^3/uL (4.0-10.5)
[2019-04-07 12:36] LABS: ALBUMIN 3.6 g/dL (3.5-5.0); ALKALINE PHOSPHATASE 51 U/L (38-126); ANION GAP 7 (5-19); ASPARTATE AMINO TRANSFERASE 28 U/L (17-59); BILIRUBIN,DIRECT 0.3 mg/dL (0.0-0.4); BILIRUBIN,TOTAL 1.5 mg/dL (0.2-1.3); BLOOD UREA NITROGEN 10 mg/dL (7-20); CARBON DIOXIDE 26 mmol/L (22-30); CHLORIDE 104 mmol/L (98-107); GLUCOSE 100 mg/dL (75-110); POTASSIUM 3.1 mmol/L (3.6-5.0); TOTAL PROTEIN 6.3 g/dL (6.3-8.2)
[2019-04-07] MEDS: NORMAL SALINE 1000 ML 1,000 ML IV PRN ×2 (12:44→15:09)
[2019-04-07] MEDS ORDERED: NORMAL SALINE 1000 ML 1,000 ML IV PRN (13:42)
[2019-04-07] MEDS ORDERED: POTASSI CL 20 MEQ/50 ML RIDER 20 MEQ/50 ML RTUPB IV ONE (13:48)
--- NOTE | 2019-04-07 14:36 | RADIOLOGY REPORT (SQ) ---
EXAM DESCRIPTION: CT ABD/PELVIS NO ORAL OR IV COMPLETED DATE/TIME: 04/07/2019 2:04 pm REASON FOR STUDY: post op appendicitis/pain/n/v COMPARISON: CT of the abdomen and pelvis from 04/05/2019. TECHNIQUE: CT scan of the abdomen and pelvis performed without intravenous or oral contrast. Images reviewed with lung, soft tissue, and bone windows. Reconstructed coronal and sagittal MPR images revi ewed. All images stored on PACS. All CT scanners at this facility use dose modulation, iterative reconstruction, and/or weight based d osing when appropriate to reduce radiation dose to as low as reasonably achievable (ALARA). [facility]: Dose Right [facility]: CareDose [facility]: Dose Right [facility]: Teradose 4D [facility]: [employer] RADIATION DOSE: CT Rad equipment meets quality standard of care and radiation dose reduction techniq ues were employed. CTDIvol: 14.6 mGy. DLP: 852 mGy-cm.mGy. LIMITATIONS: None. FINDINGS: LOWER CHEST: No acute findings. NON-CONTRASTED LIVER, SPLEEN, ADRENALS: Evaluation is limited due to the absence of intravenous contr ast. The morphology of the liver is non cirrhotic. The spleen is normal in size. There is no abnor mality of the adrenal glands. PANCREAS: No acute gross abnormality of the pancreas. GALLBLADDER: No abnormality that is apparent on CT. RIGHT KIDNEY AND URETER: Evaluation is limited due to the absence of intravenous contrast. The hypod ense lesion in the posterolateral cortex of the kidney that measures 2.9 x 2.7 cm is stable. There i s no hydronephrosis, nephrolithiasis, hydroureter or ureterolithiasis. LEFT KIDNEY AND URETER: Evaluation is limited due to the absence of intravenous contrast. The subcen timeter hypodense lesion within the posterior cortex of the kidney is stable. There is no hydronephr osis, nephrolithiasis, hydroureter or ureterolithiasis. AORTA AND RETROPERITONEUM: No aneurysm or dissection of the abdominal aorta. No retroperitoneal xander opathy, hemorrhage or mass. BOWEL AND PERITONEAL CAVITY: The short segment of circumferential mural thickening involving the sigm oid colon (image 80 of series 3) is unchanged from 04/05/2019. There is mild thickening of the perito yancy reflections in the right lower quadrant. There is no extraluminal collection or free intraperito yancy fluid. APPENDIX: There is a linear hyperdensity in the right lower quadrant adjacent to the cecum (image 36 of series 601) PELVIS, BLADDER, AND ABDOMINAL WALL:The urinary bladder is partially distended. The prostate gland m easures 4.9 cm in transverse diameter. There are foci of subcutaneous air in the left lower quadrant . BONES: No acute findings. OTHER: No other finding. IMPRESSION: 1. Unchanged short segment of circumferential mural thickening involving the sigmoid co tania (image 80 of series 3) - clinical correlation to exclude an acute inflammatory process (e.g. Div erticulitis) is recommend. 2. Linear hyperdensity in the right lower quadrant adjacent to the cecum - has the patient undergone an appendectomy? COMMENT: Quality ID # [id number]: Final reports with documentation of one or more dose reduction techniques (e.g., Automated exposure control, adjustment of the mA and/or kV according to patient size, use of iterative reconstruction technique) TECHNICAL DOCUMENTATION: JOB ID: [id number] [employer]- All Rights Reserved Reading location - IP/workstation name: [email or web address]
[2019-04-07 14:44] LABS: APPEARANCE,URINE CLEAR; BILIRUBIN,URINE NEGATIVE (NEGATIVE); COLOR,URINE YELLOW; GLUCOSE, URINE NEGATIVE (NEGATIVE); KETONES,URINE 20 mg/dL (NEGATIVE); LEUKOCYTE ESTERASE,URINE NEGATIVE (NEGATIVE); NITRITE,URINE NEGATIVE (NEGATIVE); PROTEIN,URINE 30 mg/dL (NEGATIVE); URINE SPECIFIC GRAVITY 1.011
[2019-04-07] MEDS ORDERED: MORPHINE SULFATE 10 MG/ML INJ IV PRN (16:05)
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
[2019-04-07 17:01] VITALS: BP 149/86
== END 2019-04-07 16:52 | disposition home or self-care (01) ==
LOC: ER 08:52
DX: R10.9 Unspecified abdominal pain (principal); G89.29 Other chronic pain; R11.2 Nausea with vomiting, unspecified; E87.6 Hypokalemia; I10 Essential (primary) hypertension; E11.9 Type 2 diabetes mellitus without complications; F17.200 Nicotine dependence, unspecified, uncomplicated; Z90.49 Acquired absence of other specified parts of digestive tract; Z88.8 Allergy status to other drugs, medicaments and biological substances; Z88.0 Allergy status to penicillin; Z91.040 Latex allergy status
CPT/HCPCS: 96376; 99284; 96361; 96375; 96365; 96366; 36415; 83690; 85025; 80053; 81001; 74176; J2765; J2270; J3480; J7030

== ENCOUNTER → 2019-05-15 | Outpatient (CLI) | payer MEDICAID, MEDICARE ==
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
== END ==
LOC: RAD 08:53
PROVIDERS: ATTEND Student in an Organized Health Care Education/Training Program
DX: N32.89 Other specified disorders of bladder (principal); R31.29 Other microscopic hematuria; N28.1 Cyst of kidney, acquired
CPT/HCPCS: 72197; 74183; A9576

== ENCOUNTER 2019-06-10 06:52 | Day surgery (SDC) | payer MEDICARE, BC ==
[2019-06-10] MEDS ORDERED: PROPOFOL INJ 200 MG/20 ML VIAL IV ONE ×4 (07:22→08:04)
--- NOTE | 2019-06-10 08:30 | Discharge Summary ---
Discharge Summary (SDC) - Discharge Final Diagnosis: 1. Multiple colorectal polyps 2. No evidence of diverticulosis Date of Surgery: 06/10/19 Discharge Date: 06/10/19 Condition: Good Treatment or Instructions: [address] [address] POST ENDOSCOPY DISCHARGE INSTRUCTIONS 1. Diet: Start clear liquids that a regular diet as tolerated. 2. Resume all preoperative medications. All oral anticoagulants and aspirins can be resumed 24 hours after procedure. 3. If a polypectomy was performed some bleeding per rectum may occur. This should stop within 3 days. If not, please contact the office. 4. If you had a colonoscopy you may experience some bloating and delayed return of normal bowel function for several days, your regular bowel movement pattern should resume within a week. 5. Please contact [facility] at to make an appointment with Dr. Pemberton for 1 to 3 weeks following procedure. 6. If you have any questions or concerns regarding your care,treatment plan or follow up, please contact our office. 7. Per clinical guidelines we recommend you undergo a repeat colonoscopy in 3 years. Referrals: BHANU LLANES MD [Primary Care Provider] - Discharge Diet: As Tolerated Discharge Activity: Activity As Tolerated Home Care Assistance: None Needed Report the Following to Your Physician Immediately: Shortness of Breath, Increase in Pain, Fever over 101 Degrees
--- NOTE | 2019-06-10 08:33 | Operative Report ---
Operative Report DATE OF SURGERY: 06/10/19 PREOPERATIVE DIAGNOSIS: 1. Screening for colorectal carcinoma. 2. History of pelvic abscess rule out diverticular disease POSTOPERATIVE DIAGNOSIS: 1. No evidence of colonic diverticulosis. 2. Multiple colorectal polyps OPERATION: 1. Total colonoscopy to cecum with photodocumentation. 2. Colonic and rectal polypectomy x4 SURGEON: NURIA PHELAN ANESTHESIA: LMAC TISSUE REMOVED OR ALTERED: Multiple colon polyps COMPLICATIONS: None ESTIMATED BLOOD LOSS: Scant INTRAOPERATIVE FINDINGS: See below PROCEDURE: Obtaining informed consent the patient was taken from the preoperative holding area to the main endoscopy suite where monitoring devices were attached to the patient. Plan and surgical timeout were conducted The patient was placed in the left lateral decubitus position with knees to chest. A perianal examination was performed. There was no visible or palpable anorectal pathology. Sphincter tone was felt to be normal. The flexible adult colonoscope was advanced through the anal rectal canal, all the way to the cecum. Visualization of the cecum was achieved by demonstration of the ileocecal valve, the appendiceal orifice and transillumination of the anterior abdominal wall. This was an excellent study on the well-prepped bowel. There is only residual amount of green particulate stool easily aspirated. The colonoscope was withdrawn slowly and methodically checked and the mucosa carefully. There was no evidence of tumor, stricture, bleeding; in the descending colon was a pedunculated polyp approximately 3 mm in diameter, lassoed with a hot snare, removed uneventfully and retrieved and sent as descending colon polyp. In the rectosigmoid area, multiple small sessile polyps were removed, likely hyperplastic in nature. These were removed and placed in container B labeled rectal and sigmoid colon polyps. They were all removed with a cold forceps device. Bleeding was minimal. Of note despite the patient receiving 6 vials of propofol, he continued to have rather heavy breathing, generating a lot of motion, and making the polypectomies challenging. Of note, there was no evidence of diverticuloses, stricture or tumor. The scope was slowly withdrawn through the anal rectal canal. Complete visualization of the rectum was achieved with photodocumentation. The scope was withdrawn to the patient's anus. The patient tolerated the procedure well and was taken to the recovery area in stable condition. Per surveillance guidelines, patient will be an appropriate candidate for follow-up colonoscopy in 3 years.
[2019-06-10 09:12] VITALS: BP 131/78
== END 2019-06-10 09:00 | disposition home or self-care (01) ==
LOC: END 06:52
PROVIDERS: ATTEND Surgery
DX: Z12.11 Encounter for screening for malignant neoplasm of colon (principal); D12.4 Benign neoplasm of descending colon; K63.5 Polyp of colon; Z88.6 Allergy status to analgesic agent; Z86.73 Personal history of transient ischemic attack (TIA), and cerebral infarction without residual deficits; I25.2 Old myocardial infarction; F17.210 Nicotine dependence, cigarettes, uncomplicated; Z79.899 Other long term (current) drug therapy
CPT/HCPCS: 45380; 45385; 88305 ×2; 00811; J2704; 811

== ENCOUNTER 2019-06-28 10:15 | Emergency (ER) | payer MEDICARE, MEDICAID ==
[2019-06-28] MEDS ORDERED: MORPHINE SULFATE 10 MG/ML INJ IV ONE (10:54)
[2019-06-28] MEDS ORDERED: ONDANSETRON HCL INJ/PF 4 MG/2 ML SDV IV ONE (10:54)
[2019-06-28] MEDS ORDERED: NORMAL SALINE 1000 ML 1,000 ML IV ONE (10:54)
[2019-06-28] MEDS ORDERED: ONDANSETRON 4 MG TAB.RAPDIS PO ONE ×2 (10:55→14:11)
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
[2019-06-28 13:25] LABS: ABSOLUTE LYMPHOCYTES (AUTO) 0.8 10^3/uL (0.5-4.7); ABSOLUTE MONOCYTES (AUTO) 0.4 10^3/uL (0.1-1.4); ABSOLUTE NEUT (AUTO) 9.5 10^3/uL (1.7-8.2); BASOPHILS % (AUTO) 0.4 % (0-2); EOSINOPHILS % (AUTO) 0.1 % (0-6); HEMATOCRIT 40.6 % (37.9-51.0); HEMOGLOBIN 13.9 g/dL (13.5-17.0); LYMPHOCYTES % (AUTO) 7.5 % (13-45); MEAN CORPUSCULAR HEMOGLOBIN 30.5 pg (27.0-33.4); MEAN CORPUSCULAR HGB CONC 34.1 g/dL (32.0-36.0); MEAN CORPUSCULAR VOLUME 89 fl (80-97); MONOCYTES % (AUTO) 3.7 % (3-13); PLATELET COUNT 271 10^3/uL (150-450); RED BLOOD COUNT 4.54 10^6/uL (4.35-5.55); RED CELL DISTRIBUTION WIDTH 15.1 % (11.5-14.0); SEGMENTED NEUTROPHILS % (AUTO) 88.3 % (42-78); TOTAL CELLS COUNTED % (AUTO) 100 %; WHITE BLOOD COUNT 10.8 10^3/uL (4.0-10.5)
[2019-06-28 13:45] LABS: ALBUMIN 4.4 g/dL (3.5-5.0); ALKALINE PHOSPHATASE 68 U/L (38-126); ASPARTATE AMINO TRANSFERASE 36 U/L (17-59); BILIRUBIN,TOTAL 0.8 mg/dL (0.2-1.3); BLOOD UREA NITROGEN 12 mg/dL (7-20); CALCIUM 9.6 mg/dL (8.4-10.2); CARBON DIOXIDE 26 mmol/L (22-30); GLUCOSE 104 mg/dL (75-110); POTASSIUM 4.5 mmol/L (3.6-5.0); TOTAL PROTEIN 7.1 g/dL (6.3-8.2)
[2019-06-28 13:50] LABS: ANION GAP 6 (5-19); CHLORIDE 109 mmol/L (98-107)
--- NOTE | 2019-06-28 14:05 | RADIOLOGY REPORT (SQ) ---
EXAM DESCRIPTION: CT ABD/PELVIS NO ORAL OR IV COMPLETED DATE/TIME: 06/28/2019 1:37 pm REASON FOR STUDY: lower abdominal pain COMPARISON: 04/26/2019 TECHNIQUE: CT scan of the abdomen and pelvis performed without intravenous or oral contrast. Images reviewed with lung, soft tissue, and bone windows. Reconstructed coronal and sagittal MPR images revi ewed. All images stored on PACS. All CT scanners at this facility use dose modulation, iterative reconstruction, and/or weight based d osing when appropriate to reduce radiation dose to as low as reasonably achievable (ALARA). [facility]: Dose Right [facility]: CareDose [facility]: Dose Right [facility]: Teradose 4D [facility]: Smart Feng[employer] RADIATION DOSE: CT Rad equipment meets quality standard of care and radiation dose reduction techniq ues were employed. CTDIvol: 9.5 - 9.6 mGy. DLP: 884 mGy-cm.mGy. LIMITATIONS: Motion artifact. FINDINGS: LOWER CHEST: No significant findings. No nodules or infiltrates. NON-CONTRASTED LIVER, SPLEEN, ADRENALS: Evaluation limited by lack of IV contrast. No identified sign ificant masses. PANCREAS: No masses. No peripancreatic inflammatory changes. GALLBLADDER: No identified stones by CT criteria. No inflammatory changes to suggest cholecystitis. RIGHT KIDNEY AND URETER: No suspicious masses. Assessment limited by lack of IV contrast. No signif icant calcifications. No hydronephrosis or hydroureter. LEFT KIDNEY AND URETER: No suspicious masses. Assessment limited by lack of IV contrast. No signifi cant intrarenal calcifications. There appears to be a tiny calculus at the UVJ. No hydronephrosis or hydroureter. AORTA AND RETROPERITONEUM: No aneurysm. No retroperitoneal masses or adenopathy. BOWEL AND PERITONEAL CAVITY: No obvious masses or inflammatory changes. No free fluid. APPENDIX: Surgically absent. PELVIS, BLADDER, AND ABDOMINAL WALL:No abnormal masses. No free fluid. Bladder normal. BONES: No significant findings. OTHER: No other significant finding. IMPRESSION: There appears to be a tiny calculus at the left UVJ. No other significant findings in t he abdomen or pelvis. COMMENT: Quality ID # [id number]: Final reports with documentation of one or more dose reduction techniques (e.g., Automated exposure control, adjustment of the mA and/or kV according to patient size, use of iterative reconstruction technique) TECHNICAL DOCUMENTATION: JOB ID: [id number] [employer]- All Rights Reserved Reading location - IP/workstation name: [email or web address]
[2019-06-28] MEDS ORDERED: TAMSULOSIN HCL 0.4 MG CAP.SR.24H PO ONE (14:12)
[2019-06-28] MEDS ORDERED: HYDROCODONE/ACETAMINOPHEN 5-325 MG TABLET PO ONE (14:15)
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
[2019-06-28 14:41] LABS: APPEARANCE,URINE CLEAR; BILIRUBIN,URINE NEGATIVE (NEGATIVE); COLOR,URINE YELLOW; GLUCOSE, URINE NEGATIVE (NEGATIVE); KETONES,URINE NEGATIVE (NEGATIVE); PROTEIN,URINE 30 mg/dL (NEGATIVE); URINE SPECIFIC GRAVITY 1.011; UROBILINOGEN,URINE NEGATIVE mg/dL (<2.0)
[2019-06-28 14:54] LABS: URINE AMPHETAMINES SCREEN NEGATIVE; URINE BARBITURATES SCREEN NEGATIVE; URINE BENZODIAZEPINES SCREEN NEGATIVE; URINE COCAINE SCREEN NEGATIVE; URINE MARIJUANA (THC) SCREEN UNCONFIRMED POSITIVE; URINE METHADONE SCREEN NEGATIVE; URINE PHENCYCLIDINE SCREEN NEGATIVE
[2019-06-28 17:30] VITALS: BP 152/83
== END 2019-06-28 17:28 | disposition home or self-care (01) ==
LOC: ER 10:15
DX: N20.1 Calculus of ureter (principal); R10.10 Upper abdominal pain, unspecified; R11.2 Nausea with vomiting, unspecified; Z88.0 Allergy status to penicillin; Z88.6 Allergy status to analgesic agent; I25.2 Old myocardial infarction; Z86.73 Personal history of transient ischemic attack (TIA), and cerebral infarction without residual deficits
CPT/HCPCS: 99284; 96361; 96374; 36415; 83690; 85025; 80053; 81001; 80307; 74176; A9270 ×3; J2270; J7030; S0119

== ENCOUNTER 2019-07-16 20:54 | Emergency (ER) | payer OTHER, MEDICARE, MEDICAID ==
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
[2019-07-16 21:34] LABS: ABSOLUTE BASOPHILS # (AUTO) 0.1 10^3/uL (0.0-0.2); ABSOLUTE EOSINOPHILS # (AUTO) 0.1 10^3/uL (0.0-0.6); ABSOLUTE LYMPHOCYTES (AUTO) 1.7 10^3/uL (0.5-4.7); ABSOLUTE MONOCYTES (AUTO) 0.9 10^3/uL (0.1-1.4); ABSOLUTE NEUT (AUTO) 8.9 10^3/uL (1.7-8.2); BASOPHILS % (AUTO) 0.8 % (0-2); HEMATOCRIT 40.2 % (37.9-51.0); HEMOGLOBIN 14.4 g/dL (13.5-17.0); LYMPHOCYTES % (AUTO) 14.6 % (13-45); MEAN CORPUSCULAR HEMOGLOBIN 31.5 pg (27.0-33.4); MEAN CORPUSCULAR HGB CONC 35.7 g/dL (32.0-36.0); MEAN CORPUSCULAR VOLUME 88 fl (80-97); MONOCYTES % (AUTO) 7.7 % (3-13); PLATELET COUNT 338 10^3/uL (150-450); RED BLOOD COUNT 4.56 10^6/uL (4.35-5.55); RED CELL DISTRIBUTION WIDTH 14.2 % (11.5-14.0); SEGMENTED NEUTROPHILS % (AUTO) 75.9 % (42-78); TOTAL CELLS COUNTED % (AUTO) 100 %; WHITE BLOOD COUNT 11.7 10^3/uL (4.0-10.5)
[2019-07-16 21:51] LABS: ALBUMIN 4.5 g/dL (3.5-5.0); ALKALINE PHOSPHATASE 58 U/L (38-126); ANION GAP 12 (5-19); ASPARTATE AMINO TRANSFERASE 33 U/L (17-59); BILIRUBIN,DIRECT 0.2 mg/dL (0.0-0.4); BILIRUBIN,TOTAL 0.9 mg/dL (0.2-1.3); BLOOD UREA NITROGEN 18 mg/dL (7-20); CALCIUM 9.1 mg/dL (8.4-10.2); CARBON DIOXIDE 22 mmol/L (22-30); CHLORIDE 101 mmol/L (98-107); GLUCOSE 101 mg/dL (75-110); POTASSIUM 3.7 mmol/L (3.6-5.0); TOTAL PROTEIN 7.1 g/dL (6.3-8.2)
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
--- NOTE | 2019-07-16 22:06 | RADIOLOGY REPORT (SQ) ---
EXAM DESCRIPTION: XR SHOULDER 2 OR MORE VIEWS COMPLETED DATE/TME: 07/16/2019 21:42 CLINICAL HISTORY: 54 years, Male, pain COMPARISON: None. NUMBER OF VIEWS: 3 TECHNIQUE: Internal/external rotation and transscapular Y projections were acquired LIMITATIONS: Transscapular Y projection is limited secondary to motion artifact.. FINDINGS: Visualized osseous structures are normal in appearance. Joint spaces are well-maintained. No acute fracture or dislocation is evident. Visualized portions of the left lung are clear. IMPRESSION: No definite acute osseous anomaly. copyright 2010 [employer]- All Rights Reserved
[2019-07-16 23:58] VITALS: BP 109/70
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
== END 2019-07-17 00:10 | disposition home or self-care (01) ==
LOC: ER 20:54
DX: S22.41XA Multiple fractures of ribs, right side, initial encounter for closed fracture (principal); M54.2 Cervicalgia; R07.81 Pleurodynia; M54.12 Radiculopathy, cervical region; R20.0 Anesthesia of skin; M79.642 Pain in left hand; V87.7XXA Person injured in collision between other specified motor vehicles (traffic), initial encounter; Z88.8 Allergy status to other drugs, medicaments and biological substances; Z88.0 Allergy status to penicillin; Z87.891 Personal history of nicotine dependence; I25.10 Atherosclerotic heart disease of native coronary artery without angina pectoris; I25.2 Old myocardial infarction; I10 Essential (primary) hypertension; E11.9 Type 2 diabetes mellitus without complications
CPT/HCPCS: 36415; 71046; 80053; 85025; 99283

== ENCOUNTER 2019-07-30 23:17 | Emergency (ER) | payer OTHER, MEDICARE, MEDICAID ==
[2019-07-30 23:27] VITALS: BP 121/80
--- NOTE | 2019-07-31 01:04 | RADIOLOGY REPORT (SQ) ---
EXAM DESCRIPTION: XR left ELBOW 2 VIEWS COMPLETED DATE/TME: 07/31/2019 00:00 CLINICAL HISTORY: 54 years, Male, pain COMPARISON: None. NUMBER OF VIEWS: TECHNIQUE: LIMITATIONS: None. FINDINGS: There is fracture of the olecranon that may be subacute or old. There is posterior soft tissue swelling. No evidence of elbow joint effusion. Mineralization of bone appears normal. There is an old fracture or ossicle ventral to the elbow joint. IMPRESSION: Fracture of the olecranon that may be subacute or old. Please correlate clinically. Posterior soft tissue swelling. copyright 2010 [employer]- All Rights Reserved
[2019-07-31] MEDS ORDERED: HYDROMORPHONE HCL INJ/PF 2 MG/ML AMPULE IM ONE (01:16)
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
== END 2019-07-31 02:23 | disposition home or self-care (01) ==
LOC: ER 23:17
PROC: 2W39X1Z Immobilization of Left Upper Extremity using Splint (ICD-10-PCS; principal; 2019-07-30)
DX: S52.022A Displaced fracture of olecranon process without intraarticular extension of left ulna, initial encounter for closed fracture (principal); R20.0 Anesthesia of skin; M54.2 Cervicalgia; M25.522 Pain in left elbow; V87.7XXA Person injured in collision between other specified motor vehicles (traffic), initial encounter; Z88.0 Allergy status to penicillin; Z88.8 Allergy status to other drugs, medicaments and biological substances; Z79.899 Other long term (current) drug therapy; Z87.891 Personal history of nicotine dependence; I25.10 Atherosclerotic heart disease of native coronary artery without angina pectoris; I25.2 Old myocardial infarction; I10 Essential (primary) hypertension; E11.9 Type 2 diabetes mellitus without complications
CPT/HCPCS: 99283; 96372; 73070; 29105; J1170

== ENCOUNTER 2019-08-01 10:02 | Emergency (ER) | payer OTHER, MEDICARE, MEDICAID ==
[2019-08-01] MEDS ORDERED: HYDROCODONE/ACETAMINOPHEN 10-325 MG TABLET PO ONE (10:21)
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
--- NOTE | 2019-08-01 12:01 | RADIOLOGY REPORT (SQ) ---
EXAM DESCRIPTION: ELBOW LEFT AP/LATERAL IMAGES COMPLETED DATE/TIME: 08/01/2019 11:37 am REASON FOR STUDY: L elbow fx, in splint COMPARISON: 07/31/2019. FINDINGS: Two views of the elbow, mildly limited by presence of obscuring splint material. Persistent small fracture fragments off the hypoplastic appearing olecranon. Fragment adjacent to th e proximal radius may have migrated slightly. TECHNICAL DOCUMENTATION: JOB ID: [id number] Reading location - IP/workstation name: [email or web address]
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
[2019-08-01 12:30] VITALS: BP 95/68
== END 2019-08-01 12:58 | disposition home or self-care (01) ==
LOC: ER 10:02
DX: S53.402A Unspecified sprain of left elbow, initial encounter (principal); V49.9XXA Car occupant (driver) (passenger) injured in unspecified traffic accident, initial encounter; I25.10 Atherosclerotic heart disease of native coronary artery without angina pectoris; I10 Essential (primary) hypertension; E11.9 Type 2 diabetes mellitus without complications; Z87.81 Personal history of (healed) traumatic fracture; Z87.891 Personal history of nicotine dependence; Z87.892 Personal history of anaphylaxis; Z88.8 Allergy status to other drugs, medicaments and biological substances; Z88.0 Allergy status to penicillin; Z91.041 Radiographic dye allergy status
CPT/HCPCS: 99283

== ENCOUNTER 2019-08-13 23:56 | Emergency (ER) | payer OTHER, MEDICARE, MEDICAID ==
[2019-08-14] MEDS ORDERED: HYDROXYZINE HCL INJ 50 MG/1 ML VIAL IM ONE (01:06)
[2019-08-14] MEDS ORDERED: OXYCODONE-ACETAMINOPHEN 5-325 MG TABLET PO ONE (01:06)
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
[2019-08-14 02:42] VITALS: BP 157/71
== END 2019-08-14 02:38 | disposition home or self-care (01) ==
LOC: ER 23:56
DX: F11.23 Opioid dependence with withdrawal (principal); F11.288 Opioid dependence with other opioid-induced disorder; M54.2 Cervicalgia; R07.9 Chest pain, unspecified; I10 Essential (primary) hypertension; E11.9 Type 2 diabetes mellitus without complications; Z88.6 Allergy status to analgesic agent; Z88.0 Allergy status to penicillin; Z91.041 Radiographic dye allergy status; Z87.820 Personal history of traumatic brain injury; I25.2 Old myocardial infarction
CPT/HCPCS: 99283; 96372; J3410

== ENCOUNTER 2020-01-16 13:35 | Emergency (ER) | payer MEDICARE, MEDICAID ==
[2020-01-16] MEDS ORDERED: ONDANSETRON 4 MG TAB.RAPDIS PO ONE (14:21)
[2020-01-16 14:59] LABS: ABSOLUTE BASOPHILS # (AUTO) 0.1 10^3/uL (0.0-0.2); ABSOLUTE LYMPHOCYTES (AUTO) 1.2 10^3/uL (0.5-4.7); ABSOLUTE MONOCYTES (AUTO) 0.8 10^3/uL (0.1-1.4); ABSOLUTE NEUT (AUTO) 7.9 10^3/uL (1.7-8.2); BASOPHILS % (AUTO) 1.5 % (0-2); EOSINOPHILS % (AUTO) 0.3 % (0-6); HEMATOCRIT 41.7 % (37.9-51.0); LYMPHOCYTES % (AUTO) 12.1 % (13-45); MEAN CORPUSCULAR HEMOGLOBIN 30.3 pg (27.0-33.4); MEAN CORPUSCULAR VOLUME 84 fl (80-97); MONOCYTES % (AUTO) 7.7 % (3-13); PLATELET COUNT 355 10^3/uL (150-450); RED BLOOD COUNT 4.94 10^6/uL (4.35-5.55); SEGMENTED NEUTROPHILS % (AUTO) 78.4 % (42-78); TOTAL CELLS COUNTED % (AUTO) 100 %
[2020-01-16 15:00] LABS: APPEARANCE,URINE CLEAR; BILIRUBIN,URINE NEGATIVE (NEGATIVE); COLOR,URINE YELLOW; GLUCOSE, URINE NEGATIVE (NEGATIVE); KETONES,URINE NEGATIVE (NEGATIVE); LEUKOCYTE ESTERASE,URINE NEGATIVE (NEGATIVE); NITRITE,URINE NEGATIVE (NEGATIVE); PROTEIN,URINE 30 mg/dL (NEGATIVE); URINE SPECIFIC GRAVITY 1.014; UROBILINOGEN,URINE NEGATIVE mg/dL (<2.0)
[2020-01-16 15:15] LABS: ALBUMIN 4.7 g/dL (3.5-5.0); ALKALINE PHOSPHATASE 94 U/L (38-126); ANION GAP 8 (5-19); ASPARTATE AMINO TRANSFERASE 30 U/L (17-59); BILIRUBIN,DIRECT 0.3 mg/dL (0.0-0.4); BILIRUBIN,TOTAL 1.3 mg/dL (0.2-1.3); BLOOD UREA NITROGEN 18 mg/dL (7-20); CALCIUM 9.6 mg/dL (8.4-10.2); CARBON DIOXIDE 31 mmol/L (22-30); CHLORIDE 97 mmol/L (98-107); GLUCOSE 118 mg/dL (75-110); POTASSIUM 3.3 mmol/L (3.6-5.0); TOTAL PROTEIN 7.3 g/dL (6.3-8.2)
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
[2020-01-16 16:15] VITALS: BP 119/83
== END 2020-01-16 16:10 | disposition home or self-care (01) ==
LOC: ER 13:35
DX: R11.2 Nausea with vomiting, unspecified (principal); E87.6 Hypokalemia; Z20.828 Contact with and (suspected) exposure to other viral communicable diseases; Z79.899 Other long term (current) drug therapy; Z88.0 Allergy status to penicillin; Z88.8 Allergy status to other drugs, medicaments and biological substances; Z87.891 Personal history of nicotine dependence; I25.10 Atherosclerotic heart disease of native coronary artery without angina pectoris; I25.2 Old myocardial infarction; I10 Essential (primary) hypertension; E11.9 Type 2 diabetes mellitus without complications
CPT/HCPCS: 99283; 36415; 85025; 80053; 81001; U0003; A9270; C9803; 87635; S0119

== ENCOUNTER 2020-03-11 19:18 | Emergency (ER) | payer MEDICARE, MEDICAID ==
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
--- NOTE | 2020-03-11 20:39 | RADIOLOGY REPORT (SQ) ---
CT CERVICAL SPINE WITHOUT IV CONTRAST HISTORY: Neck pain. COMPARISON: 12/19/2015. TECHNIQUE: CT scan of the cervical spine was performed without IV contrast. This exam was performed according to our departmental dose-optimization program, which includes automated exposure control, adjustment of the mA and/or kV according to patient size and/or use of iterative reconstruction technique. FINDINGS: There has been prior ACDF at C6-C7. No acute cervical fracture or prevertebral soft tissue swelling is seen. There is straightening of the normal cervical lordosis, which may be due to cervical collar, muscle spasm, or patient positioning. The remaining facet joints and disc spaces are preserved. No advanced canal stenosis is identified. IMPRESSION: No acute fracture or subluxation of the cervical spine.
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
[2020-03-11 22:12] VITALS: BP 143/73
== END 2020-03-11 22:10 | disposition home or self-care (01) ==
LOC: ER 19:18
DX: M54.2 Cervicalgia (principal); R07.81 Pleurodynia; G89.29 Other chronic pain; R46.89 Other symptoms and signs involving appearance and behavior; Z87.828 Personal history of other (healed) physical injury and trauma; Z88.8 Allergy status to other drugs, medicaments and biological substances; Z88.0 Allergy status to penicillin; F17.200 Nicotine dependence, unspecified, uncomplicated; I25.10 Atherosclerotic heart disease of native coronary artery without angina pectoris; I25.2 Old myocardial infarction; I10 Essential (primary) hypertension; E11.9 Type 2 diabetes mellitus without complications
CPT/HCPCS: 72125; 99284

== ENCOUNTER → 2020-03-15 | Outpatient (CLI) | payer MEDICARE, MEDICAID ==
--- NOTE | 2020-03-15 13:11 | RADIOLOGY REPORT (SQ) ---
EXAM DESCRIPTION: MRI LUMBAR SPINE WITHOUT IMAGES COMPLETED DATE/TIME: 03/15/2020 9:14 am REASON FOR STUDY: M47.817 SPONDYLS W/O MYELOPATHY OR RADICULOPATHY, LUMBOSACR REGION M47.817 SPONDY LS W/O MYELOPATHY OR RADICULOPATHY, LUMBOSACR COMPARISON: 08/05/2016 TECHNIQUE: Sagittal and Axial imaging includes T1, T2, STIR and gradient echo sequences. Coronal T2/ HASTE imaging. LIMITATIONS: None. FINDINGS: VISUALIZED UPPER ABDOMEN: Limited evaluation. No acute or suspicious findings suggested. SEGMENTATION: No transitional anatomy. The lowest well-developed disc space is labeled L5-S1. ALIGNMENT: Anatomic. VERTEBRAE: Intact. BONE MARROW: Chronic endplate changes L5-S1. DISC SIGNAL: Desiccation L3- 4 through L5-S1. POSTERIOR ELEMENTS: Generally intact. No pars defect evident. HARDWARE: None in the spine. CORD AND CONUS: Normal in size and signal intensity. Conus at the appropriate level. SOFT TISSUES: No aortic aneurysm seen. No bulky retroperitoneal adenopathy or mass. No paraspinal mas s or fluid. L1-L2: No significant spinal stenosis or exit foraminal stenosis. L2-L3: No significant spinal stenosis or exit foraminal stenosis. L3-L4: Disc bulge. Minimal narrowing of the spinal canal. L4-L5: Chronic central annular fissure with the mild spinal stenosis not significantly changed. Face t arthropathy. L5-S1: Minimal narrowing of the spinal canal due to chronic central annular fissure. Mild neural for aminal narrowing bilaterally. LOWER THORACIC: Incompletely imaged. No stenosis seen. SACRUM: Visualized upper sacrum intact. OTHER: No other significant findings. IMPRESSION: Mild spinal stenosis. Stable chronic changes L4- 5 and L5-S1. TECHNICAL DOCUMENTATION: JOB ID: [id number] 2010 [employer]- All Rights Reserved Reading location - IP/workstation name: [email or web address]
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
== END ==
LOC: RAD 08:06
PROVIDERS: ATTEND Neurological Surgery
DX: M47.817 Spondylosis without myelopathy or radiculopathy, lumbosacral region (principal); M48.07 Spinal stenosis, lumbosacral region
CPT/HCPCS: 72148